=== PATIENT | female | born 1960 | race Caucasian/White ===

== ENCOUNTER 2020-01-29 10:17 | Outpatient (CLI) | payer OTHER, SELFPAY ==
--- NOTE | 2020-01-29 13:23 | DI.RAD_ITS ---
EXAM: XR KNEE RT 3V AP,LAT,CARLITOS CLINICAL HISTORY: RT KNEE PAIN TECHNIQUE: COMPARISON: No exams were available for comparison FINDINGS: Three views were obtained. There is a probable knee joint effusion. Cartilaginous joint spaces appe ar fairly well maintained as visualized. Minimal marginal osteophyte formation noted involving the j oints of the knee. No other significant finding. IMPRESSION: Suspected knee joint effusion, mild degenerative change.
== END 2020-01-29 10:37 ==
PROVIDERS: Visit Provider Orthopaedic Surgery
DX: M25.561 Pain in right knee (principal); M25.461 Effusion, right knee; M17.11 Unilateral primary osteoarthritis, right knee
CPT/HCPCS: 73562

== ENCOUNTER 2020-03-22 10:51 | Outpatient (CLI) | payer OTHER, SELFPAY ==
--- NOTE | 2020-03-22 09:00 | DI.RAD_ITS ---
EXAM: XR HEEL RT OS CALCIS CLINICAL HISTORY: right heel pain. TECHNIQUE: 2D digital imaging was performed. COMPARISON: No exams were available for comparison FINDINGS: There is a prominent plantar calcaneal spur. No bony erosions are seen. There is mild spurring at t he Achilles insertion on the calcaneus. IMPRESSION: Heel spurs. DATA REPOSITORY: RADIATION DOSE DELIVERED:
== END 2020-03-22 11:11 ==
PROVIDERS: Referring Provider Physician Assistant; Visit Provider Physician Assistant
DX: M77.31 Calcaneal spur, right foot
CPT/HCPCS: 73650

== ENCOUNTER 2020-03-30 08:53 | Outpatient (CLI) | payer OTHER, SELFPAY ==
[2020-03-31 21:58] LABS: SARS-CoV-2 RNA Undetected (Undetected)
== END 2020-03-30 09:13 ==
PROVIDERS: Visit Provider Nurse Practitioner Family
DX: Z11.59 Encounter for screening for other viral diseases (principal)
CPT/HCPCS: U0003

== ENCOUNTER 2020-09-10 18:07 | Outpatient (REF) | payer OTHER, SELFPAY | END 2020-09-10 18:27 | LOC: LBN 18:07 | PROVIDERS: Visit Provider Nurse Practitioner Family | DX: R32 Unspecified urinary incontinence (principal) | CPT/HCPCS: 87086 ==

== ENCOUNTER 2020-09-27 02:59 | Outpatient (CLI) | payer OTHER, SELFPAY ==
--- NOTE | 2020-09-27 15:57 | DI.MAMMO_ITS ---
EXAM: MG MAMMO SCREENING CLINICAL HISTORY: screening,Z12.39 TECHNIQUE: Bilateral full field digital CC and MLO mammographic images were obtained with 3D tomosyn thesis and utilizing computer aided detection (CAD). COMPARISON: Available for comparison. FINDINGS: Masses/Architectural Distortion: None seen. Microcalcifications: No suspicious pleomorphic-type are seen. Skin Thickening/Nipple Retraction: None. IMPRESSION: 1. No significant interval change with no specific features of malignancy noted. 2. Unless there is more urgent need, screening mammography is recommended, as per [employer] guidelines. BI-RADS Category 1 - Negative Breast Density - Category B - Scattered areas of fibroglandular density Breast density category C or D implies that the patient has dense breast tissue. Dense breast tissue is very common and is not abnormal but dense breast tissue can make it harder to find cancer on a ma mmogram. Also, dense breast tissue may increase their breast cancer risk. This information about the result of the mammogram report was provided to the patient to raise their awareness. Use this report when you speak with the patient about their risks for breast cancer, which includes their family hist ory. At that time, you may recommend for more screening tests (Ultrasound or MRI) as they might be us eful based on their risk. A negative radiographic report should not delay biopsy if a dominant or clinically suspicious mass is present. Up to ten percent of cancers are not identified on mammography. A negative report may reinforce clinical impression. Adenosis and dense breasts may obscure an underlying neoplasm. False positive reports average 6 to 10%. Patient will receive a letter notifying them of these results.
== END 2020-09-27 03:19 ==
PROVIDERS: Visit Provider Nurse Practitioner Family
DX: Z12.31 Encounter for screening mammogram for malignant neoplasm of breast (principal)
CPT/HCPCS: 77063; 77067

== ENCOUNTER 2021-01-12 02:54 | Outpatient (CLI) | payer OTHER, SELFPAY ==
[2021-01-12 08:50] LABS: Abs Immature Grans 0.01 10^3/uL (0.0-0.06); Absolute Basophil Count 0.03 10^3/uL (0.0-0.2); Absolute Eosinophil Count 0.26 10^3/uL (0.0-0.7); Absolute Lymphocyte Count 2.28 10^3/uL (1.2-3.4); Absolute Monocyte Count 0.38 10^3/uL (0.1-0.8); Absolute Neutrophil Count 3.19 10^3/uL (1.2-6.7); Basophils % 0.5; Eosinophils % 4.2; HCT 39.6 % (36.0-46.0); Immature Grans % 0.2; Lymphocytes % 37.1; MCH 26.6 pg (27.0-33.0); MCHC 32.8 % (32.0-36.0); MCV 81.1 fL (80-95); MPV 8.3 fL (8.0-11.0); Monocytes % 6.2; Neutrophils % 51.8; Nucleated RBC 0 %; Platelet Count 288 10^3/uL (130-400); RBC 4.88 10^6/uL (3.93-5.22); RDW 16.1 % (11.7-14.6); RDW-SD 47.3 fL; WBC 6.15 10^3/uL (4.4-10.8)
[2021-01-12 10:20] LABS: ALT 25 U/L (14-59); AST 14 U/L (15-37); Albumin 3.4 g/dL (3.4-5.0); Alkaline Phosphatase 89 U/L (46-116); Anion Gap 8.5 mmol/L (3-11); BUN 19 mg/dL (7-18); Bilirubin, Total 0.5 mg/dL (0.2-1.0); CO2 29.5 mmol/L (21.0-32.0); CREATININE 0.7 mg/dL (0.55-1.02); Calcium 8.6 mg/dL (8.5-10.1); Calculated LDL 79 mg/dL (<100); Chloride 105 mmol/L (98-107); Cholesterol 164 mg/dL (<200); Glucose 86 mg/dL (74-106); HDL Cholesterol 79 mg/dL (40-60); Potassium 4.4 mmol/L (3.5-5.1); Sodium 143 mmol/L (136-145); Total Protein 7.8 g/dL (6.4-8.2); Triglyceride 31 mg/dL (<150)
[2021-01-12 11:06] LABS: TSH < 0.01 uIU/mL (0.36-3.74)
[2021-01-13 04:33] LABS: Vitamin D 25 Total 55.6 ng/mL (30-100)
== END 2021-01-12 02:55 | disposition home or self-care (01) ==
LOC: LBO 02:54
PROVIDERS: Visit Provider Nurse Practitioner
DX: Z00.00 Encounter for general adult medical examination without abnormal findings (principal); E03.9 Hypothyroidism, unspecified; Z78.0 Asymptomatic menopausal state; Z80.0 Family history of malignant neoplasm of digestive organs
CPT/HCPCS: 36415; 80053; 80061; 82306; 84443; 85025

== ENCOUNTER 2021-01-26 14:01 | Outpatient (CLI) | payer OTHER, SELFPAY ==
--- NOTE | 2021-01-21 | DI.DEXA_ITS ---
Exam(s) XR DEXA BONE DENSITY W/WO ELVIRA EXAM: XR DEXA BONE DENSITY W/WO ELVIRA CLINICAL HISTORY: SCREENING FOR OSTEOPOROSIS, Z13.820 TECHNIQUE: COMPARISON: No exams were available for comparison FINDINGS: DEXA scan was performed according to the usual protocol. Findings for left hip scanning are T-score 0.3 with left femoral neck T-score -0.6. Findings for right forearm scanning are T-score 0.3. Findings for lumbar spine scanning are T-score -1.4. IMPRESSION: DEXA scan findings consistent with osteopenia according to the WHO criteria. The lateral vertebral s canogram shows no evidence of a vertebral compression fracture. RADIATION DOSE DELIVERED: Total DLP
== END 2021-01-26 14:21 ==
PROVIDERS: Visit Provider Nurse Practitioner
DX: M85.88 Other specified disorders of bone density and structure, other site (principal)
CPT/HCPCS: 77080

== ENCOUNTER 2021-05-29 19:26 | Emergency (ER) | payer OTHER, SELFPAY ==
[2021-05-29 19:32] VITALS: BP 164/67; PULSE 80; RESP 18; TEMP 36.6; O2SAT 98
--- NOTE | 2021-05-29 19:45 | DI.RAD_ITS ---
Exam(s) XR FOOT RT LIMITED EXAM: XR FOOT RT LIMITED CLINICAL HISTORY: ? foreign body, lateral mid foot. TECHNIQUE: 2D digital imaging was performed. COMPARISON: No exams were available for comparison FINDINGS: BONES: No acute fracture is present. No bony destructive lesion is seen. Heel spurs. JOINTS: No dislocation present. Mild degenerative changes. SOFT TISSUE: Normal. No foreign body. No gas collection. IMPRESSION: Heel spurs. No visible foreign body. DATA REPOSITORY: RADIATION DOSE DELIVERED:
--- NOTE | 2021-05-29 20:44 | DI.VRAD_ITS ---
PROCEDURE INFORMATION: Exam: XR Right Toe(s) Exam date and time: 05/29/2021 7:50 PM Age: 61 years old Clinical indication: Other: Foreign body, lateral mid foot TECHNIQUE: Imaging protocol: XR Right toes. Views: Minimum 2 views. COMPARISON: CR XR HEEL RT OS CALCIS 03/22/2020 9:30 AM FINDINGS: Bones/joints: No evidence for a fracture. Alignment is anatomic. The joint spaces are preserved. Stable calcaneal spurs. Soft tissues: Unremarkable. No evidence for a radiopaque foreign body. IMPRESSION: Unremarkable radiographic study. No evidence for radiopaque foreign body. Dictated and Authenticated by: Pako Reece MD. Ordering:BINH Joe MD
--- NOTE | 2021-05-29 20:53 | ED.GENADUL_ITS ---
Discharge Plan Disposition Patient Disposition: HOME Condition: Stable Discharge Details Clinical Impression: Foreign body Primary Care Provider: Rubina Quigley ED Provider: Tatyana Camargo Home Meds and New Rx's Prescriptions: New cephalexin 500 mg capsule 500 mg PO QID Qty: 20 RF: 0 Continued armour thryoid PO RF: 0 omega-3 fatty acids [Fish Oil Concentrate] 1,000 mg capsule 1,000 mg PO DAILY RF: 0 cholecalciferol (vitamin D3) 125 mcg (5,000 unit) capsule 125 mcg PO DAILY RF: 0 multivitamin Tablet 1 tab PO DAILY RF: 0 ascorbate calcium (vitamin C) 500 mg tablet 500 mg PO DAILY RF: 0 glucosamine-chondroitin [Osteo Bi-Flex] 250-200 mg tablet 2 tab PO BID RF: 0 Estring 2 mg (7.5 mcg /24 hour) ring 1 vag ring vaginal [id number] Qty: 1 RF: 2 Discharge Instructions Instructions: Soft Tissue Foreign Body (ED) Additional Instructions: warm soaks bid, rinse well and pat dry. can apply antibiotic ointment and bandaid to protect. can use over the counter pain medication as directed if needed. report sign of infection immediately. this includes but not limited to increase pain, redness or fever. crutches for ambulation as needed. call pcp tomorrow morning to check on tetanus status. Referrals: Rubina Quigley [Primary Care Provider] - (as needed) Discharge Data Discharge Date/Time-TO BE ENTERED AT DEPARTURE: 05/29/21 21:30 <Homero Sarabia DO - Last Filed: 05/30/21 04:27> I was requested by Tatyana Camargo to evaluate the patient's foot to remove potential foreign body. Small foreign body likely glass was noted on x-ray imaging. They evaluated the patient, discussed the procedure with the patient. Patient agreed and requested procedure. Under ultrasound guidance I was able to visualize foreign body, it was about 1 cm under the skin. Area was anesthetized with lidocaine with epinephrine, cleaned vigorously. Utilizing forceps I was able to directly visualize the foreign body under ultrasound guidance being grasped by the forcep however it appears on direct exam that the foreign body was actually in 3 pieces rather than 1. Is able to extract 2 small pieces, but the final 1 to 2 mm piece was both too small and too deep to be extracted. It appeared to be impossible to grab, it would slide away from the internal aspect of the forceps for every grasping attempt. After 5 subsequent attempt I was unable to remove the spinal piece. I discussed this with Tatyana Camargo. Recommend antibiotics and tetanus update and cleaning. HPI <Tatyana Camargo NP - Last Filed: 05/29/21 21:05> General Mode of arrival: ambulatory . Date/Time Provider Initiated Documentation: 05/29/21 19:45 . Limitations to Documentation: no limitations . Information obtained by: patient . HPI Narrative: stepped on something that caused pain but she was not able to find anything, she thinks it may have been glass. small puncture wound seen, no surrounding erythema, no sign of FB. states it hurts to bear weight on area. Related Data Home Medications Medication Instructions Recorded Confirmed armour thryoid PO 03/22/20 03/28/21 ascorbate calcium (vitamin C) 500 500 mg PO DAILY 03/22/20 05/29/21 mg tablet cholecalciferol (vitamin D3) 125 125 mcg PO DAILY 03/22/20 05/29/21 mcg (5,000 unit) capsule glucosamine-chondroitin 250 mg-200 2 tab PO BID tab 03/22/20 05/29/21 mg tablet multivitamin 1 tab PO DAILY 03/22/20 05/29/21 omega-3 fatty acids 1,000 mg 1,000 mg PO DAILY 03/22/20 05/29/21 capsule estradiol 1 vag ring VAGINAL [id number] #1 ea 11/30/20 05/29/21 cephalexin 500 mg PO QID #20 cap 05/29/21 Previous Rx's Medication Instructions Recorded estradiol 1 vag ring VAGINAL [id number] #1 ea 11/30/20 cephalexin 500 mg PO QID #20 cap 05/29/21 Allergies Allergy/AdvReac Type Severity Reaction Status Date / Time ibuprofen [From Advil] Allergy Verified 03/28/21 15:13 General Stated Complaint: Laceration NORMA: 4 PFSH <Tatyana Camargo NP - Last Filed: 05/29/21 21:05> Medical History Asymmetrical sensorineural hearing loss Cervical polyp Hypothyroidism Right Achilles tendinitis Family History Father Non Hodgkin's lymphoma Mother Diabetes Pancreatic cancer Has tested BRCA Negative Thyroid disorder Hypertension Brother Hypertension Sister Hypertension Social History Smoking/Tobacco Use Status: Never Second Hand Exposure: No Smoking risk assessment performed?: Yes Alcohol Intake: current Alcohol Intake frequency: holidays/special occasions only Drug use: Never Substance use type: does not use Current gender identity: female Course <Tatyana Camargo NP - Last Filed: 05/29/21 21:05> Vital Signs Vital signs: Vital Signs Temperature 36.6 C 05/29/21 19:32 Pulse 80 05/29/21 19:32 Respiratory Rate 18 05/29/21 19:32 Blood Pressure 164/67 H 05/29/21 19:32 Pulse Oximetry 98 05/29/21 19:32 Temperature 36.6 C 05/29/21 19:32 Temperature Source Temporal Artery Scan 05/29/21 19:32 Pulse 80 05/29/21 19:32 Respiratory Rate 18 05/29/21 19:32 Blood Pressure 164/67 H 05/29/21 19:32 Blood Pressure Position Supine 05/29/21 19:32 Pulse Oximetry 98 05/29/21 19:32 Oxygen Delivery Method Room Air 05/29/21 19:32 Oxygen Flow Rate 0 05/29/21 19:32 <Homero Sarabia DO - Last Filed: 05/30/21 04:27> Foreign Body Removal Time Out Performed: yes Site: right and foot Description of foreign body: other (glass) Sedation/Analgesia: none Technique: removal with forceps Confirmed by:: direct visualization and ultrasound Complications: none Post-procedure exam: awake, alert, normal BP and normal HR Neurovascular: normal distal pulse, normal capillary fill and distal motor function normal
== END 2021-05-29 21:30 | disposition home or self-care (01) ==
PROVIDERS: Emergency Provider Nurse Practitioner Acute Care; PCP Nurse Practitioner
DX: S90.851A Superficial foreign body, right foot, initial encounter (principal); W45.8XXA Other foreign body or object entering through skin, initial encounter; W25.XXXA Contact with sharp glass, initial encounter
CPT/HCPCS: 99283; 73620

== ENCOUNTER 2021-07-19 04:28 | Outpatient (CLI) | payer OTHER, SELFPAY ==
[2021-07-19 17:00] LABS: TSH 0.01 uIU/mL (0.36-3.74)
[2021-07-21 02:02] LABS: Vitamin D 25 Total 59.9 ng/mL (30-100)
== END 2021-07-19 04:29 | disposition home or self-care (01) ==
PROVIDERS: PCP Nurse Practitioner; Visit Provider Nurse Practitioner
DX: E03.9 Hypothyroidism, unspecified (principal); R89.9 Unspecified abnormal finding in specimens from other organs, systems and tissues; E55.9 Vitamin D deficiency, unspecified
CPT/HCPCS: 36415; 82306; 84443

== ENCOUNTER 2021-10-03 03:42 | Outpatient (CLI) | payer OTHER, SELFPAY ==
[2021-10-03 13:05] LABS: TSH (W/Ref FT4) 0.09 uIU/mL (0.36-3.74)
[2021-10-03 13:21] LABS: FREE T4 0.69 ng/dL (0.76-1.46)
== END 2021-10-03 03:43 | disposition home or self-care (01) ==
PROVIDERS: PCP Nurse Practitioner; Visit Provider Nurse Practitioner
DX: E03.9 Hypothyroidism, unspecified (principal)
CPT/HCPCS: 36415; 84439; 84443

== ENCOUNTER 2022-01-04 01:51 | Outpatient (CLI) | payer OTHER, SELFPAY ==
[2022-01-04 22:17] LABS: T3, Total 233 ng/dL (97-169)
[2022-01-04 22:52] LABS: Thyroglobulin Antibody <15 U/mL (<=60); Thyroperoxidase Antibody <28 U/mL (<=60)
== END 2022-01-04 01:52 | disposition home or self-care (01) ==
LOC: LBO 01:51
PROVIDERS: PCP Nurse Practitioner; Visit Provider Internal Medicine Endocrinology, Diabetes & Metabolism
DX: E03.9 Hypothyroidism, unspecified (principal)
CPT/HCPCS: 36415; 84480; 86376; 86800

== ENCOUNTER 2022-01-19 09:15 | Outpatient (CLI) | payer OTHER, SELFPAY ==
[2022-01-19 12:39] LABS: Vitamin D 25 Total 57.1 ng/mL (30-100)
== END 2022-01-19 09:16 | disposition home or self-care (01) ==
LOC: LBO 09:16
PROVIDERS: PCP Nurse Practitioner; Visit Provider Nurse Practitioner
DX: E55.9 Vitamin D deficiency, unspecified (principal)
CPT/HCPCS: 36415; 82306

== ENCOUNTER 2022-03-20 16:35 | Outpatient (REF) | payer OTHER, SELFPAY ==
--- NOTE | 2022-03-20 15:30 | PAPFT_PTH ---
PATIENT: Mary James LOC: [facility] U#:[id number] AGE/SX: 61/F ROOM: RE03/20/[address]: PEG Du : 1960 BED: DIS: 03/20/2022 SPEC #: [id number] RECD: 03/20/22 18:14 STATUS: DEBBIE REQ #: [id number] CONRAD: 03/20/22 15:[address]: Jennifer May DEPT: [facility] Cytology RECD BY: Nenita Ghotra ENTERED: 03/20/22 18:14 SP TYPE: PAPFT OTHR DR: Rubina Quigley Tissues: 1 - CX/ENDOCX FOR PAP SMEARS Procedures: PAP THIN PREP/UVM Screening HPV DNA PROBE Comments: [id number]
== END 2022-03-20 16:36 | disposition home or self-care (01) ==
LOC: LBN 16:35
PROVIDERS: PCP Nurse Practitioner; Visit Provider Nurse Practitioner Family
DX: Z12.4 Encounter for screening for malignant neoplasm of cervix (principal); Z11.51 Encounter for screening for human papillomavirus (HPV)
CPT/HCPCS: 88142; 87624

== ENCOUNTER 2022-05-17 03:33 | Outpatient (CLI) | payer OTHER, SELFPAY ==
[2022-05-18 10:29] LABS: Lyme Ab w Rflx to Lyme Confirm Negative (Negative)
== END 2022-05-17 03:34 | disposition home or self-care (01) ==
LOC: LBO 03:33
PROVIDERS: PCP Nurse Practitioner; Visit Provider Nurse Practitioner
DX: M25.50 Pain in unspecified joint (principal)
CPT/HCPCS: 36415; 86618

== ENCOUNTER → 2022-06-02 13:54 | Outpatient (CLI) | payer OTHER, SELFPAY ==
--- NOTE | 2022-06-02 09:30 | DI.MAMMO_ITS ---
Exam(s) MAMMO SCREENING EXAM: MAMMO SCREENING CLINICAL HISTORY: screening, Z12.39 TECHNIQUE: Mammograms were interpreted according to the usual protocol including computer analysis w [email or web address] CAD system, tomosynthesis and C-view imaging. COMPARISON: 2010 through 2020 FINDINGS: The breasts are composed of scattered fibroglandular densities, Breast Density category B. No suspicious masses or suspicious microcalcifications are seen. No skin thickening or abnormal axillary lymph nodes are seen. There has been no significant change from prior exams. IMPRESSION: BI-RADS Category 1, Negative mammogram Yearly screening mammography is recommended. Breast Density - Category B, scattered fibroglandular densities. A negative radiographic report should not delay biopsy if a dominant or clinically suspicious mass is present. Up to ten percent of cancers are not identified on mammography. A negative report may reinforce clinical impression. Adenosis and dense breasts may obscure an underlying neoplasm. False positive reports average 6 to 10%. Patient will receive a letter notifying them of these results.
== END ==
PROVIDERS: PCP Nurse Practitioner; Visit Provider Nurse Practitioner Family
DX: Z12.31 Encounter for screening mammogram for malignant neoplasm of breast (principal)
CPT/HCPCS: 77063; 77067

== ENCOUNTER 2022-06-16 02:06 | Outpatient (CLI) | payer OTHER, SELFPAY ==
[2022-06-16 14:36] LABS: FREE T4 0.83 ng/dL (0.76-1.46); TSH 0.29 uIU/mL (0.36-3.74)
[2022-06-16 22:21] LABS: T3, Total 184 ng/dL (97-169)
[2022-06-19 12:09] LABS: Thyroperoxidase Antibody <28 U/mL (<=60)
== END 2022-06-16 02:07 | disposition home or self-care (01) ==
LOC: LBO 02:07
PROVIDERS: PCP Nurse Practitioner; Visit Provider Internal Medicine Endocrinology, Diabetes & Metabolism
DX: E03.9 Hypothyroidism, unspecified (principal)
CPT/HCPCS: 36415; 84439; 84443; 84480; 86376

== ENCOUNTER 2022-09-18 09:01 | Outpatient (CLI) | payer OTHER, SELFPAY ==
--- NOTE | 2022-09-18 11:32 | DI.RAD_ITS ---
Exam(s) XR FOOT RT COMPLETE EXAM: XR FOOT RT COMPLETE CLINICAL HISTORY: ACHILLES TENDONITIS. TECHNIQUE: 2D digital imaging was performed. Three views. COMPARISON: CR,XR XR FOOT RT LIMITED from 05/29/2021 FINDINGS: BONES: No acute fracture is present. No bony destructive lesion is seen. Plantar calcaneal spur. Mi ld degenerative changes intertarsal region and 1st MTP joint JOINTS: No dislocation present. SOFT TISSUE: Calcification at distal Achilles tendon and spurring at the insertion. IMPRESSION: Heel spurs. DATA REPOSITORY: RADIATION DOSE DELIVERED:
== END 2022-09-18 09:21 ==
LOC: DI 09:02
PROVIDERS: PCP Nurse Practitioner; Visit Provider Podiatrist
DX: M77.31 Calcaneal spur, right foot (principal)
CPT/HCPCS: 73630

== ENCOUNTER 2022-09-28 03:26 | Outpatient (CLI) | payer OTHER, SELFPAY ==
[2022-09-28 12:38] LABS: FREE T4 0.72 ng/dL (0.76-1.46); TSH 0.32 uIU/mL (0.36-3.74)
== END 2022-09-28 03:27 | disposition home or self-care (01) ==
LOC: LBO 03:26
PROVIDERS: PCP Nurse Practitioner; Visit Provider Internal Medicine Endocrinology, Diabetes & Metabolism
DX: E03.9 Hypothyroidism, unspecified (principal)
CPT/HCPCS: 36415; 84439; 84443

== ENCOUNTER 2022-10-03 11:26 | Outpatient (CLI) | payer OTHER, SELFPAY ==
--- NOTE | 2022-10-03 12:15 | DI.MRI_ITS ---
Exam(s) MR LOWER JOINT RT WO EXAM: MR LOWER JOINT RT WO CLINICAL HISTORY: CALCANEAL SPUR RT FOOT, ACHILLES TENDINITIS RT LEG TECHNIQUE: Multiplanar multisequence MRI was performed without intravenous contrast. COMPARISON: CR XR FOOT RT COMPLETE from 09/18/2022 FINDINGS: SKIN: No evidence of ulcer nor subcutaneous tract. 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 There is a pump bump b carlos enlargement on the posterior superior aspect of the calcaneus with retrocalcaneal bursitis and in sertional thickening distal Achilles tendon. There is also a moderate-prominent inferior calcaneal s pur noted. Plantar fascia thickness is upper normal but without abnormal signal to suggest plantar f asciitis. Also no plantar fascia nodularity evident. No ankle joint effusion seen and no effusion in the subtalar joint nor ower in talonavicular and pham caneocuboid joints.. The talar dome appears unremarkable. The ankle mortise is maintained. There i s no evidence of para-articular ganglion.There is no evidence of osseous tarsal coalition. More distally there is some degenerative change in the 2nd and 3rd tarsometatarsal joints. LIGAMENTS: Anterior and posterior tibiofibular syndesmotic ligaments are intact. Anterior and joinery setter out ior talofibular ligaments are intact. The calcaneofibular ligament is intact. On the medial aspect of the ankle deltoid ligament appears intact. SINUS TARSI: There is no loss of the normal fat signal in this space. Interosseous ligament is intac t. There is no evidence of sinus tarsi ganglion cyst. ANTEROLATERAL GUTTER:There is no abnormal signal/abnormal tissue in this space. MUSCULOTENDINOUS STRUCTURES: Achilles tendon: Insertional thickening-mild tendinitis. No high-grade tear. Plantar fascia: Unremarkable. No evidence of tear, abnormal thickening, nor abnormal nodularity. Anterior Extensor tendons: Unremarkable. Medial Tendons: Posterior Tibialis: Unremarkable. No tear or tenosynovitis evident. Flexor Digitorum longus: Unremarkable. No tear or tenosynovitis evident. Flexor Hallicus longus: Unremarkable. No tear or tenosynovitis evident. Lateral Tendons: Peroneus longus: Unremarkable. No tear nor tenosynovitis evident. Peroneus brevis:Unremarkable. No tear nor tenosynovitis evident. SOFT TISSUES: Unremarkable. OTHER FINDINGS: Lisfranc ligament is intact. IMPRESSION: 1. Main findings here appear to be components of Raymundo synrome which is comprised of a Raymundo defo rmity also known as pump bump or Camacho bump on the posterior superior aspect of the calcaneus, and th is finding is associated with retrocalcaneal bursitis, as is evident here. There is also insertional thickening of the Achilles tendon with mild tendinitis but no true tear of the Achilles. 2. There is also prominent inferior calcaneal spur but this is not associated with abnormal intraosse ous signal at this level nor evidence of obvious plantar fasciitis. 3. There is signal abnormality in the bases of the 2nd and 3rd metatarsals as well as distal aspects of the corresponding cuneiform bones consistent with some degenerative change at these tarsometatarsa l articulations. There is sparing of the 1st, 4th, and 5th tarsometatarsal joints. DATA REPOSITORY:
== END 2022-10-03 11:46 ==
LOC: DI 11:27
PROVIDERS: PCP Nurse Practitioner; Visit Provider Podiatrist
DX: M77.31 Calcaneal spur, right foot (principal); M76.61 Achilles tendinitis, right leg; M77.51 Other enthesopathy of right foot and ankle
CPT/HCPCS: 73721

== ENCOUNTER 2022-12-26 05:03 | Outpatient (CLI) | payer OTHER, SELFPAY ==
[2022-12-26 13:22] LABS: FREE T4 0.67 ng/dL (0.76-1.46)
[2022-12-26 15:14] LABS: TSH 1.77 uIU/mL (0.36-3.74)
[2022-12-27 18:18] LABS: T3, Total 134 ng/dL (97-169)
== END 2022-12-26 05:04 | disposition home or self-care (01) ==
LOC: LBO 05:03
PROVIDERS: PCP Nurse Practitioner; Visit Provider Internal Medicine Endocrinology, Diabetes & Metabolism
DX: E03.9 Hypothyroidism, unspecified (principal)
CPT/HCPCS: 36415; 84439; 84443; 84480

== ENCOUNTER 2023-01-26 02:46 | Outpatient (CLI) | payer OTHER, SELFPAY ==
[2023-01-26 12:50] LABS: FREE T4 0.82 ng/dL (0.76-1.46); TSH 0.42 uIU/mL (0.36-3.74)
[2023-01-26 22:27] LABS: T3, Total 177 ng/dL (97-169)
== END 2023-01-26 02:47 | disposition home or self-care (01) ==
LOC: LBO 02:46
PROVIDERS: PCP Nurse Practitioner; Visit Provider Internal Medicine Endocrinology, Diabetes & Metabolism
DX: E03.9 Hypothyroidism, unspecified (principal)
CPT/HCPCS: 36415; 84439; 84443; 84480

== ENCOUNTER 2023-06-11 12:52 | Outpatient (CLI) | payer OTHER, SELFPAY ==
--- NOTE | 2023-06-11 09:15 | DI.RAD_ITS ---
Exam(s) XR HAND LT COMPLETE EXAM: XR HAND LT COMPLETE CLINICAL HISTORY: left hand discomfort. TECHNIQUE: 2D digital imaging was performed of the left hand. Three views were obtained. AP, later al and oblique views were obtained. COMPARISON: No exams were available for comparison FINDINGS: BONES: No acute fracture is present. No bony destructive lesion is seen. There is a benign-appearing cyst in the middle phalanx of the 4th finger. JOINTS: No dislocation present. There are mild degenerative changes seen in the hand and wrist charac terized by joint space narrowing and osteophytes. The findings are most marked at the DIP joints of the fingers. SOFT TISSUE: Normal. IMPRESSION: Mild degenerative changes of the left hand. DATA REPOSITORY: RADIATION DOSE DELIVERED:
== END 2023-06-11 12:53 | disposition home or self-care (01) ==
LOC: DIORS 12:53
PROVIDERS: PCP Nurse Practitioner; Visit Provider Physician Assistant
DX: M65.4 Radial styloid tenosynovitis [de Quervain] (principal); M67.441 Ganglion, right hand; M19.042 Primary osteoarthritis, left hand
CPT/HCPCS: 73130

== ENCOUNTER 2023-08-22 07:59 | Day surgery (SDC) | payer OTHER, SELFPAY ==
[2023-08-22 08:34] VITALS: BP 139/92; PULSE 74; RESP 18; TEMP 36.6; O2SAT 99
[2023-08-22] MEDS: Lactated Ringers 1,000 ML 80 ML IV (08:57)
--- NOTE | 2023-08-22 09:02 | W.ANESPRE ---
General Info Date of Service Date Performed: 08/22/23 Height: 5 ft 2 in Weight: 110.9 kg Body Mass Index (BMI): 44.7 Surgical Procedure: Operation Date: 08/22/23 10:55 Proposed Procedure Side Surgeon p Wrist ECTR & Dequervains Release Left George Lentz MD Meds Allergies and Home Medications Allergies Allergy/AdvReac Type Severity Reaction Status Date / Time ibuprofen [From Advil] Allergy Verified 08/22/23 08:24 Home Medication Medication Instructions Recorded armour thryoid 90 mg PO DAILY AM 03/22/20 cholecalciferol (vitamin D3) 125 125 mcg PO DAILY 03/22/20 mcg (5,000 unit) capsule glucosamine-chondroitin 250 mg-200 2 tab PO BID 03/22/20 mg tablet (Osteo Bi-Flex) multivitamin 1 tab PO DAILY 03/22/20 omega-3 fatty acids 1,000 mg 1,000 mg PO DAILY 03/22/20 capsule (Fish Oil Concentrate) oxybutynin chloride 5 mg 5 mg PO DAILY #90 tabs 09/13/22 tablet,extended release 24 hr estradiol 2 mg (7.5 mcg/24 hour) 1 vag ring vaginal [id number] #1 ea 07/24/23 vaginal ring (Estring) Current Visit Medications: Current Medications Generic Name Dose Route Start Last Admin Trade Name Freq PRN Reason Stop Dose Admin Acetaminophen 650 mg 08/22/23 07:33 Acetaminophen 325 Mg Tab PO 09/21/23 07:32 Q4H PRN PRN Hydrocodone Bitart/Acetaminophen 0 tab 08/22/23 07:32 Hydrocodone 5/Acetaminophen 325 Tab PO 09/21/23 07:31 Q3H PRN PRN Pain Ringer's Solution 1,000 mls @ 80 mls/hr 08/22/23 06:00 08/22/23 08:57 IV 09/20/23 23:59 80 mls/hr INFUSION DOLLY Administration Cefazolin Sodium/Dextrose 2 gm in 50 mls @ 100 mls/hr 08/22/23 06:00 Ancef Duplex IVPB 08/22/23 16:00 PREOP DOLLY IV Miscellaneous Supplies 1 each 08/22/23 06:00 Iv Access IV 09/20/23 23:59 DIRECTED DOLLY Sodium Chloride 0 ml 08/22/23 06:00 Normal Saline Flush 10 Ml Syr IV 09/20/23 23:59 PRN PRN Sodium Chloride 0 ml 08/22/23 06:00 Normal Saline 10 Ml Vial IJ 09/20/23 23:59 DIRECTED PRN Sterile Water 0 ml 08/22/23 06:00 Water,Injection,Sterile 10 Ml Vial IJ 09/20/23 23:59 DIRECTED PRN PFSH Active Problems Active Problems: Problem Status Onset Code Bilateral carpal tunnel syndrome G56.03 De Quervain's tenosynovitis, left M65.4 Urge incontinence N39.41 Foreign body Tinnitus, bilateral H93.13 Asymmetrical sensorineural hearing loss H90.3 Hypothyroidism E03.9 Internal derangement of right knee M23.91 Encounter for screening for other viral diseases Z11.59 Right Achilles tendinitis M76.61 Medical History Medical History Cervical polyp Surgical History Surgical History History of D&C History of colonoscopy Tobacco Smoking/Tobacco Use Status: Never Second hand exposure: No Alcohol Alcohol Intake: current Alcohol intake frequency: holidays/special occasions only Alcohol type: beer, wine and hard liquor Substance Use Substance use: Never Substance use type: does not use Vital Signs and Lab Results Vital Signs Most Recent Vital Signs in EMR: Most Recent Vital Signs Temp Pulse Resp BP Pulse Ox 36.6 C 74 18 139/92 H 99 08/22/23 08:34 08/22/23 08:34 08/22/23 08:34 08/22/23 08:34 08/22/23 08:34 Lab Results Blood Type / Crossmatch: No Data to Display Complete Blood Count: No Data to Display Complete Metabolic Panel: No Data to Display Liver Function Panel: No Data to Display Coagulation Panel: No Data to Display Cardiac Panel: No Data to Display Arterial Blood Gas: No Data to Display Venous Blood Gas: No Data to Display Pancreas Panel: No Data to Display Thyroid Panel: No Data to Display Infectious Disease: No Data to Display Blood Cultures: No Data to Display Toxicology Panel: No Data to Display Anesthesia Assessment and Plan Anesthesia History Personal History: No History of Anesthesia Complications Family History: No Family History of Anesthesia Complications Exercise Tolerance Exercise Tolerance: Metabolic Equivalents>4 Pertinent Negatives Pertinent Negatives: No Symptoms of GERD, No Major Cardiovascular Symptoms or Complaints and No Major Pulmonary Symptoms or Complaints Cardiac & Pulmonary Exam Cardiac Exam: Normal S1/S2 Heart Sounds Pulmonary Exam: Clear Bilateral Breath Sounds Implantable Cardiac Device Does patient have a Pacemaker or an ICD?: No Airway Exam Known Difficult Airway: No Mallampati Class: 2 Mouth Opening: Normal (> 3cm) Thyromental Distance: Greater than 3 cm Neck Range of Motion: Full ROM Neck Circumference: Normal Teeth Condition: Normal Dentition ASA Classification ASA Score: ASA 3 Emergency Case?: No NPO Status NPO Status: NPO Clears >2 hours, Solids >8 hours Anesthesia Plan Resuscitation Status: Full Code Anesthesia Technique: General Anesthesia Airway Planned: Natural Airway Monitors Used: Standard Monitors
[2023-08-22 09:05] VITALS: BMI 44.7
--- NOTE | 2023-08-22 09:05 | W.PREOPHP ---
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 She also has some mild symptoms of cubital tunnel syndrome although less symptomatic. Please see the previous office note for complete detailed history but she is here today for carpal tunnel release and de Quervain's, first extensor compartment, release. I reviewed the surgery with her in detail. I discussed the risk to include bleeding, infection, pain, stiffness, damage to nerves and vessels, damage to muscle and tendons, recurrence, incomplete release or missed subcompartment, weakness, inflammatory changes around the nerve or tendon, need for repeat procedures. Despite these risk, she elects to proceed. History of Present Illness History of Present Illness Chief Complaint: Left Carpal tunnel syndrome and Left DeQuervain's Tenosynovitis Narrative: Mary is a 63-year-old female have seen previously for bilateral hand pain focused on the left side with de Quervain's tenosynovitis and carpal tunnel syndrome. Please see the previous office note for complete detailed history and clinical summary. She is here today for left carpal tunnel release as well as de Quervain's release. She denies any recent illness. She denies any chest pain or shortness of breath. Review of Systems All systems reviewed & are unremarkable except as noted in HPI and below PFSH All Active Problems Bilateral carpal tunnel syndrome (Acute) De Quervain's tenosynovitis, left (Acute) 40 mg Depo-Medrol injection: 11/09/22 Urge incontinence (Acute) Foreign body (Acute) Tinnitus, bilateral (Acute) Asymmetrical sensorineural hearing loss (Acute) Hypothyroidism (Chronic) Internal derangement of right knee (Acute) Encounter for screening for other viral diseases (Acute) Right Achilles tendinitis (Acute) Medical History Cervical polyp Surgical History History of D&C History of colonoscopy Family History Father Non Hodgkin's lymphoma Mother Diabetes Pancreatic cancer Has tested BRCA Negative Thyroid disorder Hypertension Brother Hypertension Sister Hypertension Social History Smoking/Tobacco Use Status: Never Second Hand Exposure: No Smoking risk assessment performed?: Yes Alcohol Intake: current Alcohol Intake frequency: holidays/special occasions only Alcohol type: beer, wine and hard liquor Drug use: Never Substance use type: does not use Housing: house Current gender identity: female Do you feel safe at home: Yes Do you feel safe in your relationship?: Yes Meds Allergies and Home Medications Allergies Allergy/AdvReac Type Severity Reaction Status Date / Time ibuprofen [From Advil] Allergy Verified 08/22/23 08:24 Home Medications Medication Instructions Recorded Confirmed Type armour thryoid 90 mg PO DAILY AM 03/22/20 08/22/23 History cholecalciferol (vitamin D3) 125 125 mcg PO DAILY 03/22/20 08/22/23 History mcg (5,000 unit) capsule glucosamine-chondroitin 250 mg-200 2 tab PO BID 03/22/20 08/22/23 History mg tablet (Osteo Bi-Flex) multivitamin 1 tab PO DAILY 03/22/20 08/22/23 History omega-3 fatty acids 1,000 mg 1,000 mg PO DAILY 03/22/20 08/22/23 History capsule (Fish Oil Concentrate) oxybutynin chloride 5 mg 5 mg PO DAILY #90 tabs 09/13/22 08/22/23 Rx tablet,extended release 24 hr estradiol 2 mg (7.5 mcg/24 hour) 1 vag ring vaginal [id number] #1 ea 07/24/23 08/22/23 Rx vaginal ring (Estring) Exam Const General: cooperative, healthy appearing, comfortable and no acute distress Resp Auscultation: clear to auscultation bilaterally Cardio Rate: regular rate Rhythm: regular rhythm Results Last Vital Signs Temp 36.6 C 08/22/23 08:34 Pulse 74 08/22/23 08:34 Resp 18 08/22/23 08:34 BP 139/92 H 08/22/23 08:34 Pulse Ox 99 08/22/23 08:34
[2023-08-22] MEDS: ceFAZolin 2 GM/50 ML BAG IVPB (10:18)
--- NOTE | 2023-08-22 10:27 | PDOC.DSDIS_ITS ---
Date of service: 08/22/23 Time of Service: 10:32 Discharge Plan Disposition Patient Disposition: Home Condition: Good Discharge Details Reason For Visit: Left carpal tunnel and DeQuervain's tenosynovitis Attending Provider: George Lentz Primary Care Provider: Rubina Quigley Home Meds and New Rx's Prescriptions: New hydrocodone-acetaminophen 5-325 mg tablet 1 tab PO Q6H PRN (Reason: severe pain) Qty: 4 0RF Rx Instructions: Take one tablet up to every 6 hours as needed for severe postoperative pain acetaminophen 500 mg tablet 1,000 mg PO Q8H PRN Qty: 90 0RF Rx Instructions: Take two tablets up to every 8 hours as needed for pain Continued armour thryoid 90 mg PO DAILY AM Patient Comments: 60mg in am and 30mg in pm Rx Instructions: 30 mg PO daily pm omega-3 fatty acids [Fish Oil Concentrate] 1,000 mg capsule 1,000 mg PO DAILY cholecalciferol (vitamin D3) 125 mcg (5,000 unit) capsule 125 mcg PO DAILY multivitamin Tablet 1 tab PO DAILY glucosamine-chondroitin [Osteo Bi-Flex] 250-200 mg tablet 2 tab PO BID Rx Instructions: give after food/meal Estring 2 mg (7.5 mcg /24 hour) ring 1 vag ring vaginal [id number] Qty: 1 3RF oxybutynin chloride 5 mg tablet extended release 24hr 5 mg PO DAILY Qty: 90 3RF Discharge Instructions Additional Instructions: Dequervain's Discharge Instructions Activity: You should keep the hand elevated as much as possible for the first few days. You may use the other fingers as tolerated but avoid trying to do too much too soon. You may perform light activities with the splint in place. Dressing/Cast: Your splint should stay in place at all times. Do NOT get it wet. You may loosen the JON wrap if you feel it is too tight and then rewrap more loosely. Medications: - You should take Tylenol and Ibuprofen for baseline pain control. - You have Hydrocodone for breakthrough pain. - You may apply ice over the thumb. Follow-up: 7-10 days Stand Alone Forms: Tor Sharpe Tunnel Release Referrals: George Lentz MD [ [facility] STAFF PHYSICIAN] - Equipment/Supplies: Splint Activity:: Elevate Remove Dressings/Wound Care:: Do Not Remove Shower/Bathe:: Cover Diet:: As Tolerated Discharge Orders Discharge Orders: Discharge Order (Routine); Ordered 08/22/23 Ordered By: Tiffanie Pederson DS: Diagnosis Discharge Diagnosis (1) De Quervain's tenosynovitis, left: Status: Acute (2) Left carpal tunnel syndrome: Status: Suspected
[2023-08-22] MEDS: Lidocaine 1% Multi-Dose W/EPI 1/100,000 50 ML VIAL (10:29)
--- NOTE | 2023-08-22 10:43 | ROE_ITS ---
Date of service: 08/22/23 Time of Service: 10:20 Operative Note Operative Note DATE OF PROCEDURE: 08/22/23 PRE-OP DIAGNOSIS: Left Carpal Tunnel Syndrome Left DeQuervain's Tenosynovitis POST-OP DIAGNOSIS: same PROCEDURE: Left Endoscopic Carpal Tunnel Release Left 1st Extensor Compartment (DeQuervain's) Release SURGEON: George Lentz ANESTHESIA TYPE: General:No Airway Refer to Anesthesia Record ESTIMATED BLOOD LOSS: 0 PATHOLOGY: none sent TOURNIQUET TIME: 13 COMPLICATIONS: None Patient was transported to: same day Patient's condition: stable Indications: I have seen Mary in clinic for symptoms of carpal tunnel syndrome as well as DeQuervain's Tenosynovitis. The numbness, tingling, and pain limited function. Clinical exam findings with nerve conduction tests confirmed the diagnosis of carpal tunnel syndrome. Nonoperative measures such as bracing, time, activity modifications had been tried but disability and pain persisted. I discussed carpal tunnel and first extensor compartment release with the patient. I reviewed the risks of the procedure to include, but not limited to, bleeding, infection, pain, stiffness, incomplete release, damage to nerves or vessels, persistent numbness, recurrence. Despite these risks, the patient elected to proceed. Findings: There was tightened carpal tunnel. This was dilated and released successfully with the endoscopic with increased space within the tunnel. The antebrachial fascia was released proximally freeing the median nerve at the wrist. The first extensor compartment was identified and and released. EPB and APL were checked independently to not have any subcompartments. Procedure Description: Mary was greeted in the preoperative holding area where the correct side was identified and marked. The consent was reviewed with the patient and signed. The history and physical was updated. All questions were answered. She was taken back to the operating room. The patient was placed into the supine position on the operating room table with the left arm on an arm board. A nonsterile tourniquet was placed high onto the arm. All bony prominences were well padded. Prophylactic antibiotics in the form of Cefazolin were administered. The left arm was then prepped with Chloraprep and draped in a standard fashion with stockinette and extremity drape. A timeout to confirm correct identity, side and site, procedure, allergies, anesthesia, and medical concerns was performed. The surgical site was marked in the volar wrist creases in line with the radial border of the fourth ray. Additionally, the planned incision for the first extensor compartment release was also drawn on the skin. These areas were anesthetized with 1% Lidocaine with epinephrine, buffered with sodium bicarb and. The limb was then exsanguinated with an Esmarch. The skin was incised with a 15 blade, approximately 1cm. The skin only was cut and the deeper tissue was dissected bluntly with a tenotomy scissor, avoiding passing nerve and venous structures. The fascia was penetrated and opened bluntly. A two-prong skin hook was placed under this proximal fascial edge. A series of hamate finders were used to identify and dilate the carpal tunnel. Synovial elevator was used to free synovial attachments to the underside of the transverse carpal ligament. My thumb was kept in the palm to alexa the distal extent of the carpal tunnel and correctly position the hand. The Microaire endoscope was inserted without difficulty and without resistance. Excellent visualization showed horizontally running fibers of the transverse carpal ligament (TCL). The distal extent of the TCL was visualized and the end of the scope palpated with the thumb. The blade was elevated and withdrawn from distal to proximal. The TCL was split into two flaps. The endoscope was reinserted to confirm complete release and any remnant ligament was incised. The scope was withdrawn and the proximal aspect of the carpal tunnel was grossly inspected and appeared release with the median nerve visible. The antebrachial fascia at the level of the wrist was then freed from the overlying skin and then the underlying median nerve with blunt dissection. This was transected longitudinally for about 3cm proximal to the wrist incision. The wound was then irrigated with easy flow of irrigant distally and proximally. The incision was closed with a single 4-0 Nylon suture. Attention was then turned to the first sensor compartment release. A 2 cm incision was made longitudinally over the radial styloid. The skin was incised only. The deep tissue subcutaneous fat was dissected with a tenotomy scissors trying to protect any branches of the superficial radial nerve. Any branches that were identified were retracted out of the way. The first compartment ext ensor tendons were then identified. The distal aspect of the first compartment was noted and were released. This release was performed more on the dorsal side to prevent tendon subluxation. The entirety of the first extensor compartment was then released. The slips of the abductor pollicis longus tendon were inspected. They removed to confirm the appropriate motion of the thumb. The extensor pollicis brevis tendon was then identified. It was fully released without notable subcompartment. Traction on the tendon was also used to confirm appropriate extension of the thumb confirming the release of the appropriate tendon. The dorsal radial surface of the radius was once again inspected to make sure there is no other sub-compartments or other restrictions to tendon motion. The wound was then thoroughly irrigated. The deep tissue was closed with a 3-0 Vicryl. The skin was closed with a running subjective 4-0 Monocryl. The tourniquet is released without significant bleeding. Xeroform was placed on both wounds. The hand was dressed with 4 x 4's, Kerlex and JON wrap into a soft thumb spica splint. All counts were correct. Patient was transferred back to same day surgery area in stable condition. The patient tolerated the procedure well and was returned to the Same Day Surgery area in a stable condition suffering no known complication.
[2023-08-22 10:45] VITALS: BP 107/51; PULSE 71; RESP 16; TEMP 36.5; O2SAT 93
--- NOTE | 2023-08-22 10:47 | W.ANESPOSTOP ---
Postoperative Evaluation Date, Time and Location Date Performed: 08/22/23 Time Performed: 10:47 Patient Location: Day Surgery Unit Vital Signs Most Recent Imported Vital Signs: Most Recent Vital Signs Temp Pulse Resp BP Pulse Ox 36.5 C 71 16 107/51 L 93 08/22/23 10:45 08/22/23 10:45 08/22/23 10:45 08/22/23 10:45 08/22/23 10:45 Pain Score Most Recent Pain Score: Most Recent Pain Score Pain Level 0 08/22/23 10:45 Assessment Mental Status: Awake (Alert & Oriented to Patient Baseline) Airway and Respiratory Function: Patent airway with normal (patient baseline) respiratory exam Cardiovascular Function: Hemodynamically Stable Hydration Status: Adequately Hydrated Nausea & Vomiting: No Nausea or Vomiting Pain: Pt. Denies Any Pain Peripheral Nerve Block: Patient did not receive a nerve block
[2023-08-22 11:00] VITALS: BP 113/54; PULSE 70; RESP 18; TEMP 36.5; O2SAT 96
[2023-08-22 11:13] VITALS: BP 113/66; PULSE 60; RESP 18; TEMP 36.3; O2SAT 96
== END 2023-08-22 11:43 | disposition home or self-care (01) ==
PROVIDERS: PCP Nurse Practitioner; Visit Provider Student in an Organized Health Care Education/Training Program
PROC: 01N54ZZ Release Median Nerve, Percutaneous Endoscopic Approach (ICD-10-PCS; CPT 29848; principal; 2023-08-22 10:45)
DX: M65.4 Radial styloid tenosynovitis [de Quervain] (principal); G56.02 Carpal tunnel syndrome, left upper limb
CPT/HCPCS: 29848; 25000; J0131; J0690; J1100; J1885; J2001; J2405

== ENCOUNTER 2023-09-04 12:19 | Day surgery (SDC) | payer OTHER, SELFPAY ==
[2023-09-04 12:38] VITALS: BP 139/87; PULSE 76; RESP 16; TEMP 36; O2SAT 97
--- NOTE | 2023-09-04 12:47 | PDOC.DSDIS_ITS ---
Date of service: 09/04/23 Time of Service: 12:49 Discharge Plan Disposition Patient Disposition: Home Condition: Good Discharge Details Reason For Visit: Right carpal tunnel syndrome and cyst Attending Provider: George Lentz Primary Care Provider: Rubina Quigley Home Meds and New Rx's Prescriptions: New hydrocodone-acetaminophen 5-325 mg tablet 1 tab PO Q6H PRN (Reason: severe pain) Qty: 4 0RF Rx Instructions: Take one tablet up to every 6 hours as needed for severe postoperative pain Continued armour thryoid 90 mg PO DAILY AM Patient Comments: 60mg in am and 30mg in pm Rx Instructions: 30 mg PO daily pm omega-3 fatty acids [Fish Oil Concentrate] 1,000 mg capsule 1,000 mg PO DAILY cholecalciferol (vitamin D3) 125 mcg (5,000 unit) capsule 125 mcg PO DAILY multivitamin Tablet 1 tab PO DAILY glucosamine-chondroitin [Osteo Bi-Flex] 250-200 mg tablet 2 tab PO BID Rx Instructions: give after food/meal Estring 2 mg (7.5 mcg /24 hour) ring 1 vag ring vaginal [id number] Qty: 1 3RF oxybutynin chloride 5 mg tablet extended release 24hr 5 mg PO DAILY Qty: 90 3RF levocetirizine 5 mg tablet 5 mg PO QPM acetaminophen 500 mg tablet 1,000 mg PO Q8H PRN Qty: 90 0RF Rx Instructions: Take two tablets up to every 8 hours as needed for pain Discharge Instructions Stand Alone Forms: Tor Sharpe Tunnel Release Referrals: George Lentz MD [ [facility] STAFF PHYSICIAN] - Activity:: Elevate Remove Dressings/Wound Care:: 48 hours Shower/Bathe:: 48 hours Diet:: As Tolerated Discharge Orders Discharge Orders: Discharge Order (Routine); Ordered 09/04/23 Ordered By: Tiffanie Pederson
[2023-09-04] MEDS: Lactated Ringers 1,000 ML 80 ML IV (12:50)
--- NOTE | 2023-09-04 13:46 | W.ANESPRE ---
General Info Date of Service Date Performed: 09/04/23 Height: 5 ft 2 in Weight: 110 kg Body Mass Index (BMI): 44.3 Surgical Procedure: Operation Date: 09/04/23 14:40 Proposed Procedure Side Surgeon p Wrist ECTR Right George Lentz MD Meds Allergies and Home Medications Allergies Allergy/AdvReac Type Severity Reaction Status Date / Time ibuprofen [From Advil] Allergy Verified 09/04/23 12:36 Home Medication Medication Instructions Recorded armour thryoid 90 mg PO DAILY AM 03/22/20 cholecalciferol (vitamin D3) 125 125 mcg PO DAILY 03/22/20 mcg (5,000 unit) capsule glucosamine-chondroitin 250 mg-200 2 tab PO BID 03/22/20 mg tablet (Osteo Bi-Flex) multivitamin 1 tab PO DAILY 03/22/20 omega-3 fatty acids 1,000 mg 1,000 mg PO DAILY 03/22/20 capsule (Fish Oil Concentrate) oxybutynin chloride 5 mg 5 mg PO DAILY #90 tabs 09/13/22 tablet,extended release 24 hr estradiol 2 mg (7.5 mcg/24 hour) 1 vag ring vaginal [id number] #1 ea 07/24/23 vaginal ring (Estring) acetaminophen 500 mg tablet 1,000 mg (2 x 500 mg) PO Q8H PRN 08/22/23 pain #90 tabs levocetirizine 5 mg tablet 5 mg PO QPM 09/03/23 hydrocodone 5 mg-acetaminophen 325 1 tab PO Q6H PRN severe pain #4 09/04/23 mg tablet tabs Current Visit Medications: Current Medications Generic Name Dose Route Start Last Admin Trade Name Isaacq PRN Reason Stop Dose Admin Acetaminophen 650 mg 09/04/23 12:46 Acetaminophen 325 Mg Tab PO 10/04/23 12:45 Q4H PRN PRN Hydrocodone Bitart/Acetaminophen 0 tab 09/04/23 12:46 Hydrocodone 5/Acetaminophen 325 Tab PO 10/04/23 12:45 Q3H PRN PRN Pain Ringer's Solution 1,000 mls @ 80 mls/hr 09/04/23 06:00 09/04/23 12:50 IV 10/03/23 23:59 80 mls/hr INFUSION DOLLY Administration Cefazolin Sodium/Dextrose 2 gm in 50 mls @ 100 mls/hr 09/04/23 06:00 Ancef Duplex IVPB 09/04/23 16:00 PREOP DOLLY IV Miscellaneous Supplies 1 each 09/04/23 06:00 Iv Access IV 10/03/23 23:59 DIRECTED DOLLY Sodium Chloride 0 ml 09/04/23 06:00 Normal Saline Flush 10 Ml Syr IV 10/03/23 23:59 PRN PRN Sodium Chloride 0 ml 09/04/23 06:00 Normal Saline 10 Ml Vial IJ 10/03/23 23:59 DIRECTED PRN Sterile Water 0 ml 09/04/23 06:00 Water,Injection,Sterile 10 Ml Vial IJ 10/03/23 23:59 DIRECTED PRN PFSH Active Problems Active Problems: Problem Status Onset Code Ganglion cyst of dorsum of right wrist M67.431 Bilateral carpal tunnel syndrome G56.03 De Quervain's tenosynovitis, left M65.4 Urge incontinence N39.41 Foreign body Tinnitus, bilateral H93.13 Asymmetrical sensorineural hearing loss H90.3 Hypothyroidism E03.9 Internal derangement of right knee M23.91 Encounter for screening for other viral diseases Z11.59 Right Achilles tendinitis M76.61 Medical History Medical History Cervical polyp Surgical History Surgical History History of D&C History of colonoscopy Tobacco Smoking/Tobacco Use Status: Never Second hand exposure: No Alcohol Alcohol Intake: current Alcohol intake frequency: holidays/special occasions only Alcohol type: beer, wine and hard liquor Substance Use Substance use: Never Substance use type: does not use Vital Signs and Lab Results Vital Signs Most Recent Vital Signs in EMR: Most Recent Vital Signs Temp Pulse Resp BP Pulse Ox 36.0 C L 76 16 139/87 97 09/04/23 12:38 09/04/23 12:38 09/04/23 12:38 09/04/23 12:38 09/04/23 12:38 Lab Results Blood Type / Crossmatch: No Data to Display Complete Blood Count: No Data to Display Complete Metabolic Panel: No Data to Display Liver Function Panel: No Data to Display Coagulation Panel: No Data to Display Cardiac Panel: No Data to Display Arterial Blood Gas: No Data to Display Venous Blood Gas: No Data to Display Pancreas Panel: No Data to Display Thyroid Panel: No Data to Display Infectious Disease: No Data to Display Blood Cultures: No Data to Display Toxicology Panel: No Data to Display Anesthesia Assessment and Plan Anesthesia History Personal History: No History of Anesthesia Complications Family History: No Family History of Anesthesia Complications Exercise Tolerance Exercise Tolerance: Metabolic Equivalents>4 Pertinent Negatives Pertinent Negatives: No Symptoms of GERD, No Major Cardiovascular Symptoms or Complaints, No Major Pulmonary Symptoms or Complaints and No History of CVA/TIA Cardiac & Pulmonary Exam Cardiac Exam: Normal S1/S2 Heart Sounds Pulmonary Exam: Clear Bilateral Breath Sounds Implantable Cardiac Device Does patient have a Pacemaker or an ICD?: No Airway Exam Known Difficult Airway: No Mallampati Class: 2 Mouth Opening: Normal (> 3cm) Thyromental Distance: Greater than 3 cm Neck Range of Motion: Full ROM Neck Circumference: Normal Teeth Condition: Normal Dentition ASA Classification ASA Score: ASA 3 Emergency Case?: No NPO Status NPO Status: NPO Clears >2 hours, Solids >8 hours Anesthesia Plan Resuscitation Status: Full Code Anesthesia Technique: General Anesthesia Airway Planned: Natural Airway Monitors Used: Standard Monitors
[2023-09-04 13:51] VITALS: BMI 44.3
--- NOTE | 2023-09-04 14:15 | HPE_ITS ---
Assessment and Plan Assessment and plan (1) Bilateral carpal tunnel syndrome: Status: Acute Assessment and plan: Mary is a 63-year-old female with carpal tunnel syndrome of the right side. Please see the office note complete detailed history. She is here today for the right carpal tunnel surgery and will proceed. Risk and benefits of the surgery once again discussed. She elects to proceed. There has been no change to her health history. No chest pain shortness of breath. No fevers or chills. History of Present Illness History of Present Illness Chief Complaint: Right carpal tunnel syndrome Narrative: Mary is a 63-year-old female who has known carpal tunnel syndrome of the right side. She has a successful carpal tunnel release on the left side. Please see the office note from 08/31/2023. She is here for right carpal tunnel surgery. Review of Systems All systems reviewed & are unremarkable except as noted in HPI and below PFSH All Active Problems Ganglion cyst of dorsum of right wrist (Acute) Bilateral carpal tunnel syndrome (Acute) De Quervain's tenosynovitis, left (Acute) s/p left DeQuervain's release DOS: 08/21/23 40 mg Depo-Medrol injection: 11/09/22 Urge incontinence (Acute) Foreign body (Acute) Tinnitus, bilateral (Acute) Asymmetrical sensorineural hearing loss (Acute) Hypothyroidism (Chronic) Internal derangement of right knee (Acute) Encounter for screening for other viral diseases (Acute) Right Achilles tendinitis (Acute) Medical History Cervical polyp Surgical History History of D&C History of colonoscopy Family History Father Non Hodgkin's lymphoma Mother Diabetes Pancreatic cancer Has tested BRCA Negative Thyroid disorder Hypertension Brother Hypertension Sister Hypertension Social History Smoking/Tobacco Use Status: Never Second Hand Exposure: No Smoking risk assessment performed?: Yes Alcohol Intake: current Alcohol Intake frequency: holidays/special occasions only Alcohol type: beer, wine and hard liquor Drug use: Never Substance use type: does not use Housing: house Current gender identity: female Do you feel safe at home: Yes Do you feel safe in your relationship?: Yes Meds Allergies and Home Medications Allergies Allergy/AdvReac Type Severity Reaction Status Date / Time ibuprofen [From Advil] Allergy Verified 09/04/23 12:36 Home Medications Medication Instructions Recorded Confirmed Type torie thryoid 90 mg PO DAILY AM 03/22/20 09/04/23 History cholecalciferol (vitamin D3) 125 125 mcg PO DAILY 03/22/20 09/04/23 History mcg (5,000 unit) capsule glucosamine-chondroitin 250 mg-200 2 tab PO BID 03/22/20 09/04/23 History mg tablet (Osteo Bi-Flex) multivitamin 1 tab PO DAILY 03/22/20 09/04/23 History omega-3 fatty acids 1,000 mg 1,000 mg PO DAILY 03/22/20 09/04/23 History capsule (Fish Oil Concentrate) oxybutynin chloride 5 mg 5 mg PO DAILY #90 tabs 09/13/22 09/04/23 Rx tablet,extended release 24 hr estradiol 2 mg (7.5 mcg/24 hour) 1 vag ring vaginal [id number] #1 ea 07/24/23 0 09/03/23 Rx vaginal ring (Estring) acetaminophen 500 mg tablet 1,000 mg (2 x 500 mg) PO Q8H PRN 08/22/23 09/04/23 Rx pain #90 tabs levocetirizine 5 mg tablet 5 mg PO QPM 09/03/23 09/04/23 History hydrocodone 5 mg-acetaminophen 325 1 tab PO Q6H PRN severe pain #4 09/04/23 Rx mg tablet tabs Exam Resp Auscultation: clear to auscultation bilaterally Cardio Rate: regular rate Rhythm: regular rhythm Results Last Vital Signs Temp 36.0 C L 09/04/23 12:38 Pulse 76 09/04/23 12:38 Resp 16 09/04/23 12:38 BP 139/87 09/04/23 12:38 Pulse Ox 97 09/04/23 12:38
[2023-09-04] MEDS: Lidocaine 1% Multi-Dose W/EPI 1/100,000 50 ML VIAL (14:22)
[2023-09-04] MEDS: Sodium Bicarbonate 50 MEQ/50 ML VIAL (14:22)
[2023-09-04 14:42] VITALS: BP 122/77; PULSE 80; RESP 16; TEMP 36.4; O2SAT 94
[2023-09-04 14:57] VITALS: BP 97/69; PULSE 71; RESP 18; TEMP 36.4; O2SAT 94
--- NOTE | 2023-09-04 15:05 | W.PM.OP ---
Date of service: 09/04/23 Time of Service: 14:00 Operative Note Operative Note DATE OF PROCEDURE: 09/04/23 PRE-OP DIAGNOSIS: Right Carpal Tunnel Syndrome POST-OP DIAGNOSIS: same PROCEDURE: Right Endoscopic Carpal Tunnel Release SURGEON: George Lentz ANESTHESIA TYPE: General:No Airway Refer to Anesthesia Record ESTIMATED BLOOD LOSS: 0 PATHOLOGY: none sent TOURNIQUET TIME: 4 COMPLICATIONS: None Patient was transported to: same day Patient's condition: stable Indications: I have seen Mary in clinic for symptoms of carpal tunnel syndrome. The numbness, tingling, and pain limited function. Clinical exam findings with nerve conduction tests confirmed the diagnosis of carpal tunnel syndrome. Nonoperative measures such as bracing, time, activity modifications had been tried but disability and pain persisted. I discussed carpal tunnel release with the patient. I reviewed the risks of the procedure to include, but not limited to, bleeding, infection, pain, stiffness, incomplete release, damage to nerves or vessels, persistent numbness, recurrence. Despite these risks, the patient elected to proceed. Findings: There was tightened carpal tunnel. This was dilated and released successfully with the endoscopic with increased space within the tunnel. The antebrachial fascia was released proximally freeing the median nerve at the wrist. Procedure Description: Mary was greeted in the preoperative holding area where the correct side was identified and marked. The consent was reviewed with the patient and signed. The history and physical was updated. All questions were answered. Mary was taken back to the operating room. The patient was placed into the supine position on the operating room table with the right arm on an arm board. A nonsterile tourniquet was placed high onto the arm. All bony prominences were well padded. The right arm was then prepped with Chloraprep and draped in a standard fashion with stockinette and extremity drape. A timeout to confirm correct identity, side and site, procedure, allergies, anesthesia, and medical concerns was performed. The surgical site was marked in the volar wrist creases in line with the radial border of the fourth ray. This area was anesthetized with approximately 6cc of 1% Lidocaine. The limb was then exsanguinated with an Esmarch. The skin was incised with a 15 blade, approximately 1cm. The skin only was cut and the deeper tissue was dissected bluntly with a tenotomy scissor, avoiding passing nerve and venous structures. The fascia was penetrated and opened bluntly. A two-prong skin hook was placed under this proximal fascial edge. A series of hamate finders were used to identify and dilate the carpal tunnel. Synovial elevator was used to free synovial attachments to the underside of the transverse carpal ligament. My thumb was kept in the palm to alexa the distal extent of the carpal tunnel and correctly position the hand. The Microaire endoscope was inserted without difficulty and without resistance. Excellent visualization showed horizontally running fibers of the transverse carpal ligament (TCL). The distal extent of the TCL was visualized and the end of the scope palpated with the thumb. The blade was elevated and withdrawn from distal to proximal. The TCL was split into two flaps. The endoscope was reinserted to confirm complete release and any remnant ligament was incised. The scope was withdrawn and the proximal aspect of the carpal tunnel was grossly inspected and appeared release with the median nerve visible. The antebrachial fascia at the level of the wrist was then freed from the overlying skin and then the underlying median nerve with blunt dissection. This was transected longitudinally for about 3cm proximal to the wrist incision. The wound was then irrigated with easy flow of irrigant distally and proximally. The incision was closed with a single 4-0 Nylon suture. The wound was dressed with Xeroform, Gauze, Kerlix and Fidel. The tourniquet was deflated with the initial dressing and held with some pressure. Blood flow returned easily to all digits with capillary refill less than 2 seconds. The patient tolerated the procedure well and was returned to the Same Day Surgery area in a stable condition suffering no known complication.
--- NOTE | 2023-09-04 15:28 | W.ANESPOSTOP ---
Postoperative Evaluation Date, Time and Location Date Performed: 09/04/23 Time Performed: 14:51 Patient Location: Day Surgery Unit Vital Signs Most Recent Imported Vital Signs: Most Recent Vital Signs Temp Pulse Resp BP Pulse Ox 36.4 C L 71 18 97/69 L 94 09/04/23 14:57 09/04/23 14:57 09/04/23 14:57 09/04/23 14:57 09/04/23 14:57 Pain Score Most Recent Pain Score: Most Recent Pain Score Pain Level 0 09/04/23 14:57 Assessment Mental Status: Awake (Alert & Oriented to Patient Baseline) Airway and Respiratory Function: Patent airway with normal (patient baseline) respiratory exam Cardiovascular Function: Hemodynamically Stable Hydration Status: Adequately Hydrated Nausea & Vomiting: No Nausea or Vomiting Pain: Pt. Denies Any Pain Peripheral Nerve Block: Patient did not receive a nerve block
== END 2023-09-04 15:43 | disposition home or self-care (01) ==
PROVIDERS: PCP Nurse Practitioner; Visit Provider Student in an Organized Health Care Education/Training Program
PROC: 01N54ZZ Release Median Nerve, Percutaneous Endoscopic Approach (ICD-10-PCS; CPT 29848; principal; 2023-09-04 14:30)
DX: G56.01 Carpal tunnel syndrome, right upper limb (principal); M67.431 Ganglion, right wrist
CPT/HCPCS: 29848; J1100; J1885; J2001; J2004; J2405; J2704

== ENCOUNTER 2023-10-26 02:39 | Outpatient (CLI) | payer OTHER, SELFPAY ==
[2023-10-26 12:48] LABS: FREE T4 0.68 ng/dL (0.76-1.46); TSH 1.07 uIU/Ml (0.36-3.74)
[2023-10-26 21:52] LABS: T3, Total 200 ng/dL (97-169)
== END 2023-10-26 02:40 | disposition home or self-care (01) ==
LOC: LBO 02:40
PROVIDERS: PCP Nurse Practitioner; Visit Provider Internal Medicine Endocrinology, Diabetes & Metabolism
DX: E03.9 Hypothyroidism, unspecified (principal)
CPT/HCPCS: 36415; 84439; 84443; 84480

== ENCOUNTER 2024-02-07 15:39 | Outpatient (CLI) | payer OTHER, SELFPAY ==
--- NOTE | 2024-02-07 14:15 | DI.RAD_ITS ---
Exam(s) XR KNEE RT 3V AP,LAT,CARLITOS EXAM: XR KNEE RT 3V AP,LAT,CARLITOS CLINICAL HISTORY: RIGHT KNEE PAIN. TECHNIQUE: 2D digital imaging was performed. COMPARISON: CR XR KNEE RT 3V AP,LAT,CARLITOS from 01/29/2020 FINDINGS: 3 views No evidence of fracture or obvious joint effusion. However, there is significant progression of dege nerative change when compared to January 2020. Significant joint space narrowing medial compartment is now noted. There also appears to be an osteochondral defect on the articular surface of the medial f emoral condyle now evident, not previously present. Lateral compartment exhibits normal height. Advanced degenerative changes in the patellofemoral comp artment noted, more so than previous. IMPRESSION: Significant progression of degenerative changes in the right knee when compared to prior images of 2019. There also appears to be an osteochondral defect in the medial compartment. DATA REPOSITORY: RADIATION DOSE DELIVERED:
--- NOTE | 2024-02-07 14:15 | DI.RAD_ITS ---
Exam(s) XR KNEE LT 3V AP,LAT,CARLITOS EXAM: XR KNEE LT 3V AP,LAT,CARLITOS CLINICAL HISTORY: LEFT KNEE PAIN. TECHNIQUE: 2D digital imaging was performed. COMPARISON: None FINDINGS: 3 views There is no evidence fracture or obvious joint effusion. However, there is [id number] narrowing of the medial compartment. There is also subarticular lucency in the medial femoral condyle which has appearance of a probable degenerative subarticular cyst more so than an actual OCD. There are margin al osteophytes off the inner aspect of the medial compartment. Lateral compartment exhibits normal h eight. Mild degenerative changes in the patellofemoral compartment. IMPRESSION: Advanced degenerative narrowing of the medial compartment. There is a degenerative subarticular cyst in the medial femoral condyle. DATA REPOSITORY: RADIATION DOSE DELIVERED:
== END 2024-02-07 15:40 | disposition home or self-care (01) ==
LOC: DIORS 15:39
PROVIDERS: PCP Nurse Practitioner; Visit Provider Physician Assistant
DX: M25.562 Pain in left knee (principal)
CPT/HCPCS: 73562

== ENCOUNTER → 2024-02-20 11:31 | Outpatient (CLI) | payer OTHER, SELFPAY ==
--- NOTE | 2024-02-20 13:58 | DI.MAMMO_ITS ---
Exam(s) MAMMO SCREENING EXAM: MAMMO SCREENING CLINICAL HISTORY: screening Z12.31 TECHNIQUE: Mammograms were interpreted according to the usual protocol including computer analysis w [employer] (mytaxi) CAD system, tomosynthesis and C-view imaging. COMPARISON: 2015 through 2021 FINDINGS: The breasts are composed of scattered fibroglandular densities, Breast Density category B. No suspicious masses or suspicious microcalcifications are seen. No skin thickening or abnormal axillary lymph nodes are seen. There has been no significant change from prior exams. IMPRESSION: BI-RADS Category 1, Negative mammogram Yearly screening mammography is recommended. Breast Density - Category B, scattered fibroglandular densities. A negative radiographic report should not delay biopsy if a dominant or clinically suspicious mass is present. Up to ten percent of cancers are not identified on mammography. A negative report may reinforce clinical impression. Adenosis and dense breasts may obscure an underlying neoplasm. False positive reports average 6 to 10%. Patient will receive a letter notifying them of these results.
== END ==
PROVIDERS: PCP Nurse Practitioner; Visit Provider Obstetrics & Gynecology
DX: Z12.31 Encounter for screening mammogram for malignant neoplasm of breast (principal)
CPT/HCPCS: 77063; 77067

== ENCOUNTER 2024-07-09 02:06 | Outpatient (CLI) | payer OTHER, SELFPAY ==
[2024-07-09 10:03] LABS: Abs Immature Grans 0.01 10^3/uL (0.0-0.06); Absolute Basophil Count 0.04 10^3/uL (0.0-0.2); Absolute Eosinophil Count 0.17 10^3/uL (0.0-0.7); Absolute Lymphocyte Count 2.08 10^3/uL (1.2-3.4); Absolute Neutrophil Count 2.86 10^3/uL (1.2-6.7); Basophils % 0.7 %; Eosinophils % 3.1 %; HCT 40.3 % (36.0-46.0); HGB 13.2 g/dL (11.2-15.7); Immature Grans % 0.2 %; Lymphocytes % 37.4 %; MCH 27.3 pg (27.0-33.0); MCHC 32.8 % (32.0-36.0); MCV 83 fL (80-95); MPV 8.3 fL (8.0-11.0); Monocytes % 7.2 %; Neutrophils % 51.4 %; Platelet Count 271 10^3/uL (130-400); RBC 4.84 10^6/uL (3.93-5.22); RDW 15.5 % (11.7-14.6); RDW-SD 46.8 fL; WBC 5.56 10^3/uL (4.4-10.8)
[2024-07-09 10:27] LABS: ALT 27 U/L (14-59); AST 20 U/L (15-37); Albumin 3.5 g/dL (3.4-5.0); Alkaline Phosphatase 95 U/L (46-116); Anion Gap 7.5 mmol/L (3-11); BUN 22 mg/dL (7-18); Bilirubin, Total 0.44 mg/dL (0.2-1.0); CO2 29.5 mmol/L (21.0-32.0); CREATININE 0.8 mg/dL (0.55-1.02); Calcium 8.9 mg/dL (8.5-10.1); Calculated LDL 74 mg/dL (<100); Chloride 105 mmol/L (98-107); Cholesterol 179 mg/dL (<200); Estimated GFR 83.26 (mL/min/1.73m2); Glucose 89 mg/dL (74-106); HDL Cholesterol 98 mg/dL (40-60); Potassium 4.5 mmol/L (3.5-5.1); Sodium 142 mmol/L (136-145); TSH 0.99 uIU/mL (0.36-3.74); Triglyceride 35 mg/dL (<150)
[2024-07-09 19:01] LABS: T3, Total 218 ng/dL (97-169)
== END 2024-07-09 02:07 | disposition home or self-care (01) ==
PROVIDERS: Internal Medicine Endocrinology, Diabetes & Metabolism; PCP Nurse Practitioner; Visit Provider Nurse Practitioner
DX: E03.9 Hypothyroidism, unspecified (principal); E04.9 Nontoxic goiter, unspecified; Z00.00 Encounter for general adult medical examination without abnormal findings; Z79.899 Other long term (current) drug therapy
CPT/HCPCS: 36415; 80053; 80061; 84439; 84443; 84480; 85025

== ENCOUNTER 2024-08-07 10:09 | Outpatient (CLI) | payer OTHER, SELFPAY ==
--- NOTE | 2024-08-07 10:00 | RT.EKG_ITS ---
APPROVED REPORT Exam: Resting ECG Reason for Exam: PRE-OP Patient Location: O HR:53 bpm ECG Measurements Heart Rate 53 AXIS AR 138 P 40 QRSd 120 QRS -15 QT 450 T 1 QTc 423 Conclusion Sinus rhythm...normal P axis, V-rate 50- 99 Nonspecific T abnormalities, anterior leads...T <-0.10mV, V2-V4
== END 2024-08-07 10:10 | disposition home or self-care (01) ==
PROVIDERS: PCP Nurse Practitioner; Visit Provider Nurse Practitioner
DX: Z01.818 Encounter for other preprocedural examination (principal)
CPT/HCPCS: 93005; 93010

== ENCOUNTER 2024-09-03 07:47 | Outpatient (CLI) | payer OTHER, SELFPAY ==
--- NOTE | 2024-09-03 07:15 | DI.RAD_ITS ---
Exam(s) XR CHEST 2V PA LATERAL EXAM: XR CHEST 2V PA LATERAL CLINICAL HISTORY: cough, ? pneumonia TECHNIQUE: 2D digital imaging was performed of the chest. Two images were obtained. PA and lateral views were obtained. COMPARISON: No exams were available for comparison FINDINGS: MEDIASTINUM: Normal. HEART: Normal. PULMONARY VASCULATURE: Normal. LUNGS: Clear. PLEURAL SPACE: No pleural effusion or pneumothorax. BONE:Within normal limits for the patient's age. OTHER FINDINGS:Normal. IMPRESSION: No acute pulmonary findings. DATA REPOSITORY: RADIATION DOSE DELIVERED:
== END 2024-09-03 08:07 ==
PROVIDERS: PCP Nurse Practitioner; Visit Provider Physician Assistant
DX: R05.9 Cough, unspecified (principal)
CPT/HCPCS: 71046

== ENCOUNTER 2024-09-11 01:04 | Outpatient (CLI) | payer OTHER, SELFPAY ==
[2024-09-11 11:07] LABS: HCT 42.5 % (36.0-46.0); HGB 13.9 g/dL (11.2-15.7); MCH 26.8 pg (27.0-33.0); MCHC 32.7 % (32.0-36.0); MCV 82 fL (80-95); MPV 8.5 fL (8.0-11.0); Platelet Count 313 10^3/uL (130-400); RBC 5.19 10^6/uL (3.93-5.22); RDW-SD 47.6 fL; WBC 7.27 10^3/uL (4.4-10.8)
[2024-09-11 11:20] LABS: Anion Gap 8.8 mmol/L (3-11); BUN 25 mg/dL (7-18); CO2 27.2 mmol/L (21.0-32.0); CREATININE 0.8 mg/dL (0.55-1.02); Chloride 106 mmol/L (98-107); Estimated GFR 83.26 (mL/min/1.73m2); Glucose 93 mg/dL (74-106); Potassium 4.3 mmol/L (3.5-5.1); Sodium 142 mmol/L (136-145)
[2024-09-12 10:04] LABS: IgA 164 mg/dL (85-499); IgG 1797 mg/dL (610-1616); IgM 69 mg/dL (35-242)
[2024-09-12 14:25] LABS: Tissue Transglutaminase IgA <4.0 CU (<20.0)
== END 2024-09-11 01:05 | disposition home or self-care (01) ==
LOC: LBO 01:04
PROVIDERS: Nurse Practitioner Family; PCP Nurse Practitioner; Visit Provider Student in an Organized Health Care Education/Training Program
DX: M17.11 Unilateral primary osteoarthritis, right knee (principal); Z01.818 Encounter for other preprocedural examination
CPT/HCPCS: 36415; 80048; 82784; 85027; 83013

== ENCOUNTER 2024-09-11 15:33 | Outpatient (CLI) | payer OTHER, SELFPAY ==
--- NOTE | 2024-09-11 09:15 | DI.RAD_ITS ---
Exam(s) XR STANDING ALIGNMENT EXAM: XR STANDING ALIGNMENT CLINICAL HISTORY: R TKR planning. TECHNIQUE: 2D digital imaging was performed. Standing AP views were performed from the pelvis throu gh the ankles. COMPARISON: CR XR KNEE RT 3V AP,LAT,CARLITOS from 02/07/2024 CR XR KNEE LT 3V AP,LAT,CARLITOS from 02/07/2024 FINDINGS: BONES: No acute fracture is present. No bony destructive lesion is seen. Leg length discrepancy: No significant overall leg length discrepancy. JOINTS: Knees: Moderate narrowing of the medial femoral tibial joint space of the right knee. Severe narrowing of the medial femoral tibial joint space of the left knee. Periarticular spurring bilater ally. The ankle joints are unremarkable. The hip joints are unremarkable. SOFT TISSUE: Normal. IMPRESSION: Advanced degenerative changes both knees, left greater than right.. No significant leg length discrepancy. DATA REPOSITORY: RADIATION DOSE DELIVERED:
== END 2024-09-11 15:34 | disposition home or self-care (01) ==
LOC: DIORS 15:34
PROVIDERS: PCP Nurse Practitioner; Visit Provider Physician Assistant
DX: M17.11 Unilateral primary osteoarthritis, right knee (principal)
CPT/HCPCS: 77073

== ENCOUNTER 2024-09-24 07:24 | Day surgery (SDC) | payer OTHER, SELFPAY ==
[2024-09-24] VITALS (43 sets, daily range): BP systolic 104–160; BP diastolic 53–72; PULSE 56–78; RESP 9–23; TEMP 36.3–36.6; O2SAT 92–100; BMI 46.0
--- NOTE | 2024-09-24 07:09 | W.ANESPRE ---
General Info Date of Service Date Performed: 09/24/24 Height: 5 ft 2 in Weight: 114.305 kg Body Mass Index (BMI): 46.0 Surgical Procedure: Operation Date: 09/24/24 09:55 Proposed Procedure Side Surgeon p Knee Total Arthroplasty, Cementless CR Right George Lentz MD Meds Allergies and Home Medications Allergies Allergy/AdvReac Type Severity Reaction Status Date / Time ibuprofen (From Advil) Allergy Other (See Verified 09/24/24 07:47 Comment) Home Medication ?Medication ?Instructions ?Recorded armour thryoid 90 mg PO DAILY AM 03/22/20 cholecalciferol (vitamin D3) 125 125 mcg PO DAILY 03/22/20 mcg (5,000 unit) capsule glucosamine-chondroitin 250 mg-200 2 tab PO BID 03/22/20 mg tablet (Osteo Bi-Flex) multivitamin 1 tab PO DAILY 03/22/20 omega-3 fatty acids 1,000 mg 1,000 mg PO DAILY 03/22/20 capsule (Fish Oil Concentrate) acetaminophen 500 mg tablet 1,000 mg (2 x 500 mg) PO Q8H PRN 08/22/23 pain #90 tabs celecoxib 200 mg capsule (Celebrex) 200 mg PO BID #60 caps 06/16/24 estradiol 2 mg (7.5 mcg/24 hour) 1 vag ring vaginal [id number] #1 ea 08/13/24 vaginal ring (Estring) oxybutynin chloride 5 mg 5 mg PO DAILY #90 tabs 09/23/24 tablet,extended release 24 hr Current Visit Medications: Current Medications Generic Name Dose Route Start Last Admin Trade Name Freq PRN Reason Stop Dose Admin Acetaminophen 1,000 mg 09/24/24 06:00 Acetaminophen 500 Mg Tab PO 09/24/24 23:59 PREOP DOLLY Celecoxib 400 mg 09/24/24 06:00 Celecoxib 200 Mg Cap PO 09/24/24 23:59 PREOP DOLLY Gabapentin 300 mg 09/24/24 06:00 Gabapentin 300 Mg Cap PO 09/24/24 23:59 PREOP DOLLY Cefazolin Sodium/Dextrose 2 gm in 50 mls @ 100 mls/hr 09/24/24 06:00 Ancef Duplex IVPB 09/24/24 23:59 PREOP DOLLY Tranexamic Acid/Sodium Chloride 1,000 mg in 100 mls @ 600 mls/hr 09/24/24 06:00 IVPB 09/24/24 23:59 PREOP DOLLY Ringer's Solution 1,000 mls @ 80 mls/hr 09/24/24 07:15 IV 10/24/24 07:14 [facility] IV Miscellaneous Supplies 1 each 09/24/24 06:00 Iv Access IV 09/24/24 23:59 DIRECTED DOLLY Sodium Chloride 0 ml 09/24/24 06:00 Normal Saline Flush 10 Ml Syr IV 09/24/24 23:59 PRN PRN Sodium Chloride 0 ml 09/24/24 06:00 Normal Saline 10 Ml Vial IJ 09/24/24 23:59 DIRECTED PRN Sterile Water 0 ml 09/24/24 06:00 Water,Injection,Sterile 10 Ml Vial IJ 09/24/24 23:59 DIRECTED PRN PFSH Active Problems Active Problems: Problem Status Onset Code Osteoarthritis of left knee Acute M17.12 Osteoarthritis of right knee Acute M17.11 Ganglion cyst of dorsum of right wrist Acute M67.431 Urge incontinence Acute N39.41 Foreign body Acute Tinnitus, bilateral Acute H93.13 Asymmetrical sensorineural hearing loss Acute H90.3 Hypothyroidism Chronic E03.9 Internal derangement of right knee Acute M23.91 Encounter for screening for other viral diseases Acute Z11.59 Right Achilles tendinitis Acute M76.61 Medical History Medical History Cervical polyp Surgical History Surgical History Right carpal tunnel syndrome ECTR: 09/04/2023 Left carpal tunnel syndrome s/p left ECTR DOS: 08/21/23 De Quervain's tenosynovitis, left s/p left DeQuervain's release DOS: 08/21/23 40 mg Depo-Medrol injection: 11/09/22 History of D&C History of colonoscopy Tobacco Smoking/Tobacco Use Status: Never Second hand exposure: No Alcohol Alcohol Intake: current Alcohol intake frequency: holidays/special occasions only Alcohol type: beer, wine and hard liquor Substance Use Substance use: Never Substance use type: does not use Vital Signs and Lab Results Vital Signs Most Recent Vital Signs in EMR: Temp Pulse Resp BP Pulse Ox 36.6 C 67 16 160/69 H 98 09/24/24 07:53 09/24/24 07:53 09/24/24 07:53 09/24/24 07:53 09/24/24 07:53 Lab Results Blood Type / Crossmatch: No Data to Display Complete Blood Count: White Blood Count 7.27 10^3/uL (4.4-10.8) 09/11/24 09:36 Red Blood Count 5.19 10^6/uL (3.93-5.22) 09/11/24 09:36 Hemoglobin 13.9 g/dL (11.2-15.7) 09/11/24 09:36 Hematocrit 42.5 % (36.0-46.0) 09/11/24 09:36 Platelet Count 313 10^3/uL (130-400) 09/11/24 09:36 Complete Metabolic Panel: Sodium 142 mmol/L (136-145) 09/11/24 09:36 Potassium 4.3 mmol/L (3.5-5.1) 09/11/24 09:36 Chloride 106 mmol/L (98-107) 09/11/24 09:36 Carbon Dioxide 27.2 mmol/L (21.0-32.0) 09/11/24 09:36 BUN 25 mg/dL (7-18) H 09/11/24 09:36 Creatinine 0.8 mg/dL (0.55-1.02) 09/11/24 09:36 Est GFR (CKD-EPI 2020) 83.26 (mL/min/1.73m2) 09/11/24 09:36 Calcium 9.0 mg/dL (8.5-10.1) 09/11/24 09:36 Glucose 93 mg/dL (74-106) 09/11/24 09:36 Liver Function Panel: No Data to Display Coagulation Panel: No Data to Display Cardiac Panel: No Data to Display Arterial Blood Gas: No Data to Display Venous Blood Gas: No Data to Display Pancreas Panel: No Data to Display Thyroid Panel: No Data to Display Infectious Disease: No Data to Display Blood Cultures: No Data to Display Toxicology Panel: No Data to Display Anesthesia Assessment and Plan Anesthesia History Personal History: No History of Anesthesia Complications Family History: No Family History of Anesthesia Complications Exercise Tolerance Exercise Tolerance: Metabolic Equivalents>4 Cardiac & Pulmonary Exam Cardiac Exam: Normal S1/S2 Heart Sounds Pulmonary Exam: Clear Bilateral Breath Sounds Implantable Cardiac Device Does patient have a Pacemaker or an ICD?: No Airway Exam Known Difficult Airway: No Mallampati Class: 2 Mouth Opening: Normal (> 3cm) Thyromental Distance: Greater than 3 cm Neck Range of Motion: Full ROM Neck Circumference: Normal Teeth Condition: Normal Dentition ASA Classification ASA Score: ASA 3 Emergency Case?: No NPO Status NPO Status: NPO Clears >2 hours, Solids >8 hours Anesthesia Plan Resuscitation Status: Full Code Anesthesia Technique: Spinal Anesthesia Airway Planned: Natural Airway Pain Management: Surgeon and patient request nerve block Monitors Used: Standard Monitors Preoperative Comments:: 64 yo female for TKA. Sig PMHx: Hypothyroid (on replacement), never smoker, occ EtOH. EKG: Sinus. Denies reflux. Appropriately NPO. Previous Anes: - ECTR x 2, dexmed/prop, natural airway, no issues.
[2024-09-24] MEDS: Acetaminophen 500 MG TAB 1000 MG PO (08:08)
[2024-09-24] MEDS: Celecoxib 200 MG CAP 400 MG PO (08:09)
[2024-09-24] MEDS: Gabapentin 300 MG CAP PO (08:09)
[2024-09-24] MEDS: Lactated Ringers 1,000 ML 80 ML IV (08:25)
--- NOTE | 2024-09-24 09:49 | W.ANESNERVE ---
Nerve Block Single Injection Procedure Date and Time Date Performed: 09/24/24 Procedure Start: 09:40 Location Where Procedure Performed Procedure Location: Day Surgery Unit Reason Performed: Postoperative Analgesia Requesting Provider: George Lentz Timeout Performed Timeout Performed: Yes Monitoring Used ECG, Blood Pressure and SpO2 Sterility Sterility: Hand Hygiene, Surgical Cap, Surgical Mask, Sterile Gloves and Chlorhexidine Sedation Given During Procedure Sedation Given (Indicate Dose Given): Versed IV Dose:: 2 mg Patient Mental Status Patient Mental Status: Sedate with meaningful communication Nerve Block 1st Nerve Block: Laterality: Right Block Type: Adductor Canal Ultrasound Image Saved?: Yes Needle / Catheter Used: 100mm SonoPlex II Local Anesthetic Bolus (Indicate Dose Given): Lidocaine used for local infiltration of skin, Injected in 3-5ml increments after negative blood aspiration and Bupivacaine 0.25% Dose:: 7 mL Additives (Indicate Dose Given): None Ultrasound: Sterile probe cover and gel used Nerve Stimulator: Supplement to Ultrasound use and No twitch or parasthesia noted < 0.5 mA Paresthesia: None Procedure Tolerated: No Complications Procedure Outcome: Successful Performed By: Reza Donahue 2nd Nerve Block: Laterality: Right Block Type: Other (afcn) Ultrasound Image Saved?: Yes Needle / Catheter Used: 100mm SonoPlex II Local Anesthetic Bolus (Indicate Dose Given): Injected in 3-5ml increments after negative blood aspiration and Bupivacaine 0.25% Dose:: 4 mL Additives (Indicate Dose Given): None Ultrasound: Sterile probe cover and gel used Nerve Stimulator: Supplement to Ultrasound use and No twitch or parasthesia noted < 0.5 mA Paresthesia: None Procedure Tolerated: No Complications Procedure Outcome: Successful Performed By: Reza Donahue
--- NOTE | 2024-09-24 10:16 | W.PM.DSUDISC ---
Date of service: 09/24/24 Discharge Plan Disposition Patient Disposition: Home Condition: Good Discharge Details Reason For Visit: Right Knee Arthritis Attending Provider: George Lentz Primary Care Provider: Rubina Quigley Home Meds and New Rx's Prescriptions: New aspirin 81 mg tablet,delayed release (DR/EC) 81 mg PO BID Qty: 60 0RF acetaminophen 500 mg tablet 1,000 mg PO Q8H PRN (Reason: pain) Qty: 90 3RF pantoprazole 40 mg tablet,delayed release (DR/EC) 40 mg PO DAILY Qty: 30 0RF dexamethasone 4 mg tablet 4 mg PO DAILY Qty: 2 0RF Rx Instructions: Starting Post-Operative Day #1 (Day after surgery) docusate sodium [Colace] 100 mg capsule 100 mg PO BID PRNQty: 10 0RF gabapentin 300 mg capsule 300 mg PO QHS Qty: 14 0RF oxycodone 5 mg tablet 5 mg PO Q4H PRNQty: 18 0RF Continued armour thryoid 90 mg PO DAILY AM Patient Comments: 60mg in am and 30mg in pm Rx Instructions: 30 mg PO daily pm omega-3 fatty acids [Fish Oil Concentrate] 1,000 mg capsule 1,000 mg PO DAILY cholecalciferol (vitamin D3) 125 mcg (5,000 unit) capsule 125 mcg PO DAILY multivitamin Tablet 1 tab PO DAILY glucosamine-chondroitin [Osteo Bi-Flex] 250-200 mg tablet 2 tab PO BID Rx Instructions: give after food/meal Estring 2 mg (7.5 mcg /24 hour) ring 1 vag ring vaginal [id number] Qty: 1 1RF Patient Comments: in place oxybutynin chloride 5 mg tablet extended release 24hr 5 mg PO DAILY Qty: 90 3RF celecoxib [Celebrex] 200 mg capsule 200 mg PO BID Qty: 60 1RF Discontinued acetaminophen 500 mg tablet 1,000 mg PO Q8H PRN Qty: 90 0RF Rx Instructions: Take two tablets up to every 8 hours as needed for pain Discharge Instructions Additional Instructions: Total Knee Discharge Instructions Activity: The most important activity is to walk and to work on gentle motion (both flexion and extension). You should try to take short walks a few times a day. It is important that when resting you work on keeping the knee straight. Avoid putting a pillow behind the knee as this will encourage flexion. Work on range of motion exercises as provided by Physical Therapy. - Start outpatient physical therapy within 2 weeks. - You should wear the SAAD hose on both legs for 2 weeks. You may remove these at night. You may also use any compression sock in place of the SAAD hose. - Utilize [employer] to review exercises, see videos on exercises and obtain basic information pertaining to your surgery and your recovery. Dressing: Remove the Fidel wrap by 2 days after your surgery and put on the SAAD stocking given to you from the hospital. Keep the surgical dressing (underneath the FIDEL wrap) in place for at least one week. After the first week it may be removed and replaced with light gauze and tape or nothing. The wound and dressing may get wet after 3 days but avoid soaking the dressing or otherwise it will need to be changed. Many people prefer covering the dressing with cling wrap (saran wrap) to minimize it from getting soaked. If it gets wet, just pat dry. If it starts to peel off then it will need to be changed. Medications: - You should take Tylenol and anti-inflammatory Celebrex as your primary pain control medications. If the Celebrex is too expensive or not covered, please call the office for another alternative (Advil/Ibuprofen or Naproxen/Aleve) - You have been prescribed a stronger pain medication Oxycodone for breakthrough pain, take as needed as prescribed. - You have also been prescribed a stomach acid reduction agent Pantoprozole to help reduce stomach acid and reflux. - You have been prescribed Gabapentin to take at night for restlessness and nerve pain. - You will be taking Aspirin 81mg twice a day for DVT prevention unless instructed otherwise. - You have also been prescribed Decadron to take to control post-operative nausea and pain. You will start this tomorrow. - If you have constipation you should take Colace or Miralax (both [id number]). It takes most people 3-4 days to have a bowel movement. Follow-up: 2 weeks If you have any acute concerns or questions, please do not hesitate to contact the office at [phone]. You may contact Dr. Lentz with any questions after hours through the hospital at [phone] or on his cell phone at [phone]. Referrals: George Lentz MD [ [facility] STAFF PHYSICIAN] - Equipment/Supplies: Walker Activity:: Elevate Remove Dressings/Wound Care:: Do Not Remove Shower/Bathe:: 72 hours and Cover Diet:: As Tolerated Discharge Orders Discharge Orders: Discharge Order (Routine); Ordered 09/24/24 Ordered By: Cecile Vance DS: Diagnosis Discharge Diagnosis (1) Osteoarthritis of right knee: Status: Acute
[2024-09-24] MEDS: ceFAZolin 2 GM/50 ML BAG IVPB (10:37)
[2024-09-24] MEDS: TRANEXAMIC ACID/SOD. CHL. 1,000 MG/100 ML BAG 600 MG IVPB (10:45)
[2024-09-24] MEDS: fentaNYL 100 MCG/2 ML VIAL IVP (12:26)
[2024-09-24] MEDS: HYDROmorphone 1 MG/ML SYR IVP (12:38)
--- NOTE | 2024-09-24 14:24 | W.ANESPOSTOP ---
Postoperative Evaluation Date, Time and Location Date Performed: 09/24/24 Time Performed: 14:25 Patient Location: Day Surgery Unit Vital Signs Most Recent Imported Vital Signs: Most Recent Vital Signs Temp Pulse Resp BP Pulse Ox 36.3 C L 76 16 128/57 L 97 09/24/24 13:34 09/24/24 13:34 09/24/24 13:34 09/24/24 13:34 09/24/24 13:34 Pain Score Most Recent Pain Score: Most Recent Pain Score Pain Level 4 09/24/24 13:34 Assessment Mental Status: Awake (Alert & Oriented to Patient Baseline) Airway and Respiratory Function: Patent airway with normal (patient baseline) respiratory exam Cardiovascular Function: Hemodynamically Stable Hydration Status: Adequately Hydrated Nausea & Vomiting: No Nausea or Vomiting Pain: Pain is tolerable per patient Peripheral Nerve Block: Regional nerve block not resolved at time of post operative discharge
--- NOTE | 2024-09-24 14:56 | PT.INIE ---
PT Notes Visit Reasons: Right Knee Arthritis Physical Therapy Day Surgery Initial Evaluation Date: 09/24/2024 Referring Doctor: Dr. Lentz PT Orders: PT CONSULT: Status post Ortho surgery Precautions: Weightbearing as tolerated RLE, activities as tolerated,TEDS x 2 weeks Patient Profile/Admitting Diagnosis: Patient is 64-year-old female presenting status post elective right TKA (with nerve block) by Dr. Lentz on 09/24/2024. Postop uncomplicated PMHX: Cervical polyp Surgical History Right carpal tunnel syndrome ECTR: 09/04/2023Left carpal tunnel syndrome s/p left ECTR DOS: 08/21/23De Quervain's tenosynovitis, left s/p left DeQuervain's release DOS: 08/21/23 40 mg Depo-Medrol injection: 11/09/22History of D&C History of colonoscopy Social History/Home Situation: Patient resides in a single level home 12 steps to enter with left rail. Her sister will be staying with her initially. Patient full-time employed.. Patient drives patient independent with ADLs, ambulation, cooking, shopping, recreational activities including hiking and gym. Patient independent with med management Equipment Owned/DME: Patient has access to rollator, quad cane. Patient issued and fitted for FWW from [facility] Subjective: Patient reports she was very active prior to surgery including lifting weights at the gym until recently. Objective: [] General Observation: Patient semireclined in stretcher with sister present. Cryo/Cuff to right knee, IV access Mental Status: Alert and oriented x 4, motivated, cooperative, pleasant agreeable to participate in evaluation Pain: 2/10 right knee/distal quad ROM: [] Right Upper Extremity: Within normal limits Left Upper Extremity: Within normal limits Right Lower Extremity: WNL except knee 0-100 degrees Left Lower Extremity: Within normal limits Strength: [] Right Upper Extremity: 5/5 Left Upper Extremity: 5/5 Right Lower Extremity: Hip flexion: 3 -/5; hip abduction: 3 -/5; hip extension: 3 -/5; knee extension: 3/5; knee flexion: 2+/5 ankle DF: 3/5 ; ankle PF: 3/5 Left Lower Extremity: 5/5 Sensation: Intact bilateral lower extremities patient notes slightly diminished paresthesia to right heel nurse and anesthesiologist aware. Bed Mobility/Transfers: [] Supine to sit independent Sit to stand SBA Stand to sit [SBA Bed to chair SBA FWW Gait: Patient ambulates with FWW initially for first 25 feet contact-guard assist with tactile and verbal cues to facilitate knee extension on the right at weight acceptance. Patient then progressed to standby assist for remainder of 120 feet. Patient demonstrates reciprocal pattern with decreased knee flexion during swing phase. Patient able to achieve heel strike. Patient required cues to keep FWW slightly away from body to provide increased ability. Stairs: 12 steps with 1 rail and cane contact-guard assist step to pattern Balance: [] Static Sitting: Normal Dynamic Sitting: Good Static Standing: Good Dynamic Standing: Fair plus Special Tests: [] Mobility Limitations Standardized Measure [] [facility] AM-PAC 6 clicks Basic Mobility Inpatient Short Form: [] Raw Score: 22 CMS Score: 20.91% Informed Consent/Education: Patient instructed in purpose of PT consult. Packet containing TKA exercise protocol has been given to patient. Treatment: 50371 Education and training on initial set of exercises x 5 reps that can be done at home have been completed with patient. 05708 Education for car transfer including simulated transfer with her sister present. Sister is able to provide assistance with managing seat backrest if necessary to allow for foot clearance . Assessment: Patient is a 64 yo female presents with clinical signs and symptoms consistent with current/admitting diagnoses that have resulted to mobility limitations, gait instability, generalized weakness, and impairment of motor control as demonstrated by the following impairment level findings: 1. Decreased strength to right knee major muscle groups 2. Impaired standing balance 3. Limitation of joint range of motion in right knee 4. Impaired standing functional activity tolerance 5. pain right knee Impairments are contributing to the following functional limitations: 1. Inability to safely ambulate without assistive device 2. Increase completion time for mobility ADL performance 3. Increased fall risk 4. Difficulty performing stairs alone safely Patient is assessed as a moderate complexity based on the following: History: 64-year-old female with impairment level findings, functional limitations, and past medical history as indicated above Examination: Demonstrable impairment in strength, balance, and mobility level with underlying impairments and functional limitations as documented above Presentation: evolving Decision Making: moderate Goals: N/A. Plan of Care/Treatment Plan: N/A. DISCHARGE RECOMMENDATIONS: Home with HEP and Outpatient PT as scheduled for 10/08/2023 TREATMENT CODE/TIME: 31796, 51952, 49105/ [id number] Thank you for the opportunity to participate in the care of this patient. Millie Gonzales, PT [facility]
--- NOTE | 2024-09-24 18:39 | ROE_ITS ---
Operative Note Operative Note PRE-OP DIAGNOSIS: Right Knee Osteoarthritis POST-OP DIAGNOSIS: same PROCEDURE: Right Total Knee Replacement SURGEON: George Lentz WINDOWS DESKTOP SUPPORT: Cecile Vance ANESTHESIA TYPE: Spinal Refer to Anesthesia Record ESTIMATED BLOOD LOSS: 100 PATHOLOGY: none sent TOURNIQUET TIME: 0 COMPLICATIONS: None Patient was transported to: PACU Patient's condition: stable Implants: 1. Depuy Attune Cementless Cruciate Retaining Femoral Component, Size 5 2. Depuy Attune Cementless Fixed Bearing Tibial Component, Size 4 3. Depuy Attune 5x5mm CR/FB Poly 4. Depuy Attune Patellar Component, Size 35 Indications: I have seen Mary in clinic for symptoms of knee arthritis, confirmed with radiographic findings. She has exhausted nonoperative methods and was having significant limitations in daily function and desired better function and less pain. I discussed the technical details of a knee replacement. I explained the risks of the procedure to include, but not limited to, bleeding, infection, pain, stiffness, fracture, damage to nerves and vessels, damage to muscles and tendons, loosening, need for repeat procedure, blood clot and cardiopulmonary demise. Despite these risks, Mary elected to proceed. Findings: There was significant signs of arthritis throughout the knee. Procedure Description: Mary was greeted in the preoperative holding area where the correct side was identified and marked. The consent was reviewed with the patient and signed. The history and physical was updated. All questions were answered. Preoperative medications were administered: Acetaminophen 1000mg, Celebrex 400mg, and Gabapentin 300mg. An adductor canal block was then administered by the anesthesia team in the DSU. Mary was taken back to the operating room. A spinal anesthestic was then administered. The patient was placed into the supine position on the operating room table. Posts were placed for positioning during the procedure. All bony prominences were well padded. Prophylactic antibiotics in the form of Cefazolin were administered. 1g of Tranxemic Acid was given intravenously within 30 minutes of incision. The right leg was then prepped with Chloraprep and draped in a standard fashion with impervious stockinette. A second prep with Chloraprep was performed prior to application of Iodine impregnated skin protection. A timeout to confirm correct identity, side and site, procedure, allergies, anesthesia, and medical concerns was performed. With the knee in some flexion, a midline incision was made overlying the knee. Full thickness skin flaps were raised once the extensor mechanism was encountered. These were raised medially and laterally. Any bleeding was controlled with electrocautery. Once the extensor mechanism was fully exposed, a medial parapatellar arthrotomy was performed in a flexed position. All bleeding from the arthrotomy and the geniculate arteries was coagulated. A medial subperiosteal peel was performed with electrocautery to the midcoronal plane. The fat pad was removed while keeping the patellar tendon protected. The anterior distal femur synovium was removed for later visualization. The ACL and PCL were resected and the anterior horn of the lateral meniscus was transected. The knee was then flexed with the patella everted. Using a step drill, and based on preoperative templating, the femoral canal was entered. This was done with a step drill without any difficulty. The intramedullary distal femoral cut guide was inserted, set to a 5 degree valgus cut and 9mm cut thickness. The distal femoral cut guide was then held in position and pinned. With the soft tissues protected, the distal cut was performed. This was passed over a few times to ensure a planar cut. I then turned attention to the tibia. The extramedullary guide was placed onto the leg. The distal aspect was slid medial to adjust for position of center of ankle and stay in line with shaft of the tibia. Approximately 3-5 degrees of posterior slope was kept in the proximal cutting guide. The center of the guide was aligned with the PCL. The stylus was used to assess cut thickness. The medial side, most involved side, was set for a 4mm cut. This was then held in position and pinned into place with 2 additional pins and a cross pin for stability. The medial and lateral collateral ligaments were protected and the cut was performed. With this completed, it was assessed and noted to be of appropriate dimensions. The guide was removed. A spacer block was inserted and the knee was brought into extension. The 5mm spacer block provided full extension, without hyperextension and with stability of both the medial and lateral collateral ligaments was assessed. The pins from the femur and the tibia were then removed. The distal femur was then sized. The anterior stylus was placed onto the lateral ridge of the anterior femur. This indicated a size 5 femur. The external rotation of the guide was adjusted to 3 degrees to match the epicondylar axis, perpendicular to [place]?s line. The 4-in-1 cutting guide was the placed. The posterior medial femur cut was evaluated and appeared of good thickness. The spacer block was inserted underneath the cutting guide and stability was confirmed in 90 degrees of flexion. An herminia wing was used to confirm appropriate position of the anterior cut to avoid notching. This cutting guide was ensured to be flush on the cut surface and then pinned into place with headed pins. While protecting the soft tissues, quad tendon, and collateral ligaments, the anterior and posterior cuts were performed with a saw. The central two pins were removed and the posterior and anterior chamfers were cut next. The notch-cutting guide was placed. This was pinned to lateralize the femoral c omponent as much as possible while keeping it flush on the cut surface. This was then pinned into position. A reciprocating saw was used to make the notch cut. A rasp smoothed the cut surfaces. The medial and lateral menisci were removed. A trial femoral component was then inserted, impacted down to the cut surfaces, and the lug holes were drilled. A provisional trial tibial component was placed and the knee was brought through range of motion. There was noted to be excellent extension and flexion. There was no significant instability. The patella was tracking without thumbs. A size 5mm polyethylene component provided the best range of motion and stability with less than 2mm gapping with medial and lateral stress and full extension without significant hyperextension. The tibial cut surface was fully exposed. The tibia was then sized as a 4. The tibia had been previously marked during trialing to correspond to the center of the tibial component to help with rotation. The trial was aligned to this alexa, approximately rotated to the medial 1/3rd of the tibial tubercle. The trial was pinned into place. The tibia was prepared with a reamer and a keel punch and lug holes. The knee was then brought into extension and the patella was measured as 21mm. Using the patellar clamp and cut guide, this was resected to a flat surface with at least 13mm of thickness remaining. The size 35 patella fit the best. This was oriented and then clamped into position. The lugs were drilled. The trial components were removed. The final components were opened on the back table. The periosteal and capsular tissues, especially posteriorly, around the knee were then systematically injected with a periarticular cocktail consisting of 246mg of Ropivacaine, 0.5mg of Epinephrine, 0.08mg of Clonidine, and 30mg of Ketorolac, diluted to 100cc. On the back table, with the implants opened, the cement was mixed. One batch of high viscosity cement was prepared with vacuum assistance. After the cement was ready a small amount was placed on the cut surface of the patella and the patellar button was clamped into position and held. While the cement was hardening, the cementless knee components were placed. Starting with the tibial component, the tibia was subluxed anteriorly and the lug holes of the component were lined up. The tibia was then impacted with an impactor and mallet until the tibial component was in contact with the tibia. The final polyethylene component was inserted. Then, the femoral component was inserted. The lug holes were aligned and the component was impacted into position. The knee was irrigated with Surgiphor Betadine solution. This was allowed to sit in the knee for 3 minutes and then it was irrigated out with saline. After the cement had finally cured, approximately 15min, the clamp was removed from the patella and the knee was taken through range of motion. The patella was tracking with a no-thumbs technique. The capsule was then reapproximated with a No. 1 Vicryl at multiple locations. The capsule was finally closed with a No. 2 Stratafix, barbed suture. The second dosing of 1g TXA was started. Deep tissues were then reapproximated with 0 Vicryl and 2-0 Vicryl. The skin was closed with a running 3-0 Monocryl in a subcuticular fashion. This was reinforced with skin glue. A Mepilex silver dressing was applied along with a [id number] JNO wrap. A CryoCuff was applied. Mary was transferred to the hospital bed without difficulty an suffering no apparent complication. Mary has a good prognosis. Physical therapy will start today and without restrictions, weight-bearing as tolerated. Aspirin 81mg BID will be used for DVT prophylaxis. Date of Procedure: 09/24/24
== END 2024-09-24 15:35 | disposition home or self-care (01) ==
PROVIDERS: PCP Nurse Practitioner; Visit Provider Student in an Organized Health Care Education/Training Program
PROC: (CPT 27447; principal; 2024-09-24 09:45)
DX: M17.11 Unilateral primary osteoarthritis, right knee (principal); G89.18 Other acute postprocedural pain; M25.561 Pain in right knee
CPT/HCPCS: 27447; 64447; 64450; 97110; 97162; 97530; C1776; J0665; J0690; J1100; J1171; J2003; J2250; J2371; J2401; J2405; J2704; J3010

== ENCOUNTER 2024-10-06 15:32 | Outpatient (CLI) | payer OTHER, SELFPAY ==
--- NOTE | 2024-10-06 09:15 | DI.RAD_ITS ---
Exam(s) XR STANDING ALIGNMENT EXAM: XR STANDING ALIGNMENT CLINICAL HISTORY: 1ST POST OP S/P R TKA. TECHNIQUE: 2D digital imaging was performed. COMPARISON: CR XR STANDING ALIGNMENT from 09/11/2024 FINDINGS: Three views There has been interval placement of a right knee prosthesis which appears satisfactory. There is advanced narrowing of the medial compartment of the opposite-left knee again noted as well a s degenerative subarticular cysts in the subarticular medial femoral condyle of the left knee. Milde r degenerative changes are noted in the lateral compartment of the left knee. Hips appear unremarkable as do the ankles. Bone density normal. No osseous lesions. IMPRESSION: As above. DATA REPOSITORY: RADIATION DOSE DELIVERED:
--- NOTE | 2024-10-06 09:15 | DI.RAD_ITS ---
Exam(s) XR KNEE RT 1V EXAM: XR KNEE RT 1V CLINICAL HISTORY: 1st POST OP S/P R TKA. TECHNIQUE: 2D digital imaging was performed. COMPARISON: CR XR KNEE LT 3V AP,LAT,CARLITOS from 02/07/2024 FINDINGS: Single lateral view of right knee: Position alignment of the components of the recently placed right knee prosthesis appear satisfactory . No fracture or loosening evident. No radiographic evidence of osteomyelitis. Soft tissue swelling is noted anterior to the patella. IMPRESSION: Satisfactory appearance of the prosthesis components on this lateral view. DATA REPOSITORY: RADIATION DOSE DELIVERED:
== END 2024-10-06 15:33 | disposition home or self-care (01) ==
LOC: DIORS 15:32
PROVIDERS: PCP Nurse Practitioner; Visit Provider Student in an Organized Health Care Education/Training Program
DX: Z96.651 Presence of right artificial knee joint (principal); Z47.1 Aftercare following joint replacement surgery
CPT/HCPCS: 73560; 77073

== ENCOUNTER 2024-11-12 08:23 | Day surgery (SDC) | payer OTHER, SELFPAY ==
[2024-11-12] VITALS (27 sets, daily range): BP systolic 85–135; BP diastolic 33–79; PULSE 46–74; RESP 9–26; TEMP 36.2–37; O2SAT 90–100; BMI 45.8
--- NOTE | 2024-11-12 07:26 | PDOC.DSDIS_ITS ---
Date of service: 11/12/24 Discharge Plan Disposition Patient Disposition: Home Condition: Good Discharge Details Reason For Visit: L TKR Attending Provider: George Lentz Primary Care Provider: Rubina Quigley Home Meds and New Rx's Prescriptions: New celecoxib 200 mg capsule 200 mg PO BID Qty: 60 0RF aspirin 81 mg tablet,delayed release (DR/EC) 81 mg PO BID Qty: 60 0RF pantoprazole 40 mg tablet,delayed release (DR/EC) 40 mg PO DAILY Qty: 30 0RF dexamethasone 4 mg tablet 4 mg PO DAILY Qty: 2 0RF gabapentin 300 mg capsule 300 mg PO QHS Qty: 14 0RF oxycodone 5 mg tablet 5 mg PO Q4H MDD 6 tabs PRN (Reason: pain) Qty: 20 0RF Continued armour thryoid 90 mg PO DAILY AM Patient Comments: 60mg in am and 30mg in pm Rx Instructions: 30 mg PO daily pm omega-3 fatty acids [Fish Oil Concentrate] 1,000 mg capsule 1,000 mg PO DAILY cholecalciferol (vitamin D3) 125 mcg (5,000 unit) capsule 125 mcg PO DAILY multivitamin Tablet 1 tab PO DAILY glucosamine-chondroitin [Osteo Bi-Flex] 250-200 mg tablet 2 tab PO BID Rx Instructions: give after food/meal calcium citrate 250 mg calcium tablet 250 mg PO DAILY L.acidophil-L.plantar-Bifido 7 15 billion cell capsule PO Estring 2 mg (7.5 mcg /24 hour) ring 1 vag ring vaginal [id number] Qty: 1 4RF Patient Comments: in place oxybutynin chloride 5 mg tablet extended release 24hr 5 mg PO DAILY Qty: 90 3RF acetaminophen 500 mg tablet 1,000 mg PO Q8H PRN (Reason: pain) Qty: 90 3RF docusate sodium [Colace] 100 mg capsule 100 mg PO BID PRNQty: 10 0RF Discontinued celecoxib [Celebrex] 200 mg capsule 200 mg PO BID Qty: 60 1RF Discharge Instructions Additional Instructions: Total Knee Discharge Instructions Activity: The most important activity is to walk and to work on gentle motion (both flexion and extension). You should try to take short walks a few times a day. It is important that when resting you work on keeping the knee straight. Avoid putting a pillow behind the knee as this will encourage flexion. Work on range of motion exercises as provided by Physical Therapy. - Start outpatient physical therapy within 2 weeks. - You should wear the SAAD hose on both legs for 2 weeks. You may remove these at night. You may also use any compression sock in place of the SAAD hose. - Utilize [employer] to review exercises, see videos on exercises and obtain basic information pertaining to your surgery and your recovery. Dressing: Remove the Fidel wrap by 2 days after your surgery and put on the SAAD stocking given to you from the hospital. Keep the surgical dressing (underneath the FIDEL wrap) in place for at least one week. After the first week it may be removed and replaced with light gauze and tape or nothing. The wound and dressing may get wet after 3 days but avoid soaking the dressing or otherwise it will need to be changed. Many people prefer covering the dressing with cling wrap (saran wrap) to minimize it from getting soaked. If it gets wet, just pat dry. If it starts to peel off then it will need to be changed. Medications: - You should take Tylenol and anti-inflammatory Celebrex as your primary pain control medications. If the Celebrex is too expensive or not covered, please call the office for another alternative (Advil/Ibuprofen or Naproxen/Aleve) - You have been prescribed a stronger pain medication Oxycodone for breakthrough pain, take as needed as prescribed. - You have also been prescribed a stomach acid reduction agent Pantoprozole to help reduce stomach acid and reflux. - You have been prescribed Gabapentin to take at night for restlessness and nerve pain. - You will be taking Aspirin 81mg twice a day for DVT prevention unless instructed otherwise. - You have also been prescribed Decadron to take to control post-operative nausea and pain. You will start this tomorrow. - If you have constipation you should take Colace or Miralax (both [id number]). It takes most people 3-4 days to have a bowel movement. Follow-up: 2 weeks If you have any acute concerns or questions, please do not hesitate to contact the office at [phone]. You may contact Dr. Lentz with any questions after hours through the hospital at [phone] or on his cell phone at [phone]. Referrals: George Lentz MD [ [facility] STAFF PHYSICIAN] - Equipment/Supplies: Walker Activity:: Activity as Tolerated Shower/Bathe:: 72 hours Diet:: As Tolerated Discharge Orders Discharge Orders: Discharge Order (Routine); Ordered 11/12/24 Ordered By: Eusebio Gonzalez DS: Diagnosis Discharge Diagnosis (1) Osteoarthritis of left knee: Status: Acute
--- NOTE | 2024-11-12 09:36 | W.ANESPRE ---
General Info Date of Service Date Performed: 11/12/24 Height: 5 ft 2 in Weight: 113.8 kg Body Mass Index (BMI): 45.8 Surgical Procedure: Operation Date: 11/12/24 10:40 Proposed Procedure Side Surgeon p Knee Total Arthroplasty Left George Lentz MD Actual Procedure Side Surgeon p Knee Total Arthroplasty Left George Lentz MD Pre-Op Diagnosis Post-Op Diagnosis osteoarthritis of the left knee Meds Allergies and Home Medications Allergies Allergy/AdvReac Type Severity Reaction Status Date / Time ibuprofen (From Advil) Allergy Other (See Verified 11/12/24 08:57 Comment) mushroom Allergy Other (See Unverified 11/12/24 08:57 Comment) Home Medication ?Medication ?Instructions ?Recorded armour thryoid 90 mg PO DAILY AM 03/22/20 cholecalciferol (vitamin D3) 125 125 mcg PO DAILY 03/22/20 mcg (5,000 unit) capsule glucosamine-chondroitin 250 mg-200 2 tab PO BID 03/22/20 mg tablet (Osteo Bi-Flex) multivitamin 1 tab PO DAILY 03/22/20 omega-3 fatty acids 1,000 mg 1,000 mg PO DAILY 03/22/20 capsule (Fish Oil Concentrate) oxybutynin chloride 5 mg 5 mg PO DAILY #90 tabs 09/23/24 tablet,extended release 24 hr acetaminophen 500 mg tablet 1,000 mg (2 x 500 mg) PO Q8H PRN 09/24/24 pain #90 tabs docusate sodium 100 mg capsule 100 mg PO BID PRN #10 caps 09/24/24 (Colace) Lactobacillus cap PO DAILY 11/11/24 acidophil,plantar-Bifido no.7 15 billion cell capsule calcium citrate 250 mg PO DAILY 11/11/24 estradiol 2 mg (7.5 mcg/24 hour) 1 vag ring vaginal [id number] #1 ea 11/11/24 vaginal ring (Estring) aspirin 81 mg tablet,delayed 81 mg PO BID #60 tabs 11/12/24 release celecoxib 200 mg capsule 200 mg PO BID #60 caps 11/12/24 dexamethasone 4 mg tablet 4 mg PO DAILY #2 tabs 11/12/24 gabapentin 300 mg capsule 300 mg PO QHS #14 caps 11/12/24 oxycodone 5 mg tablet 5 mg PO Q4H PRN pain #20 tabs 11/12/24 pantoprazole 40 mg tablet,delayed 40 mg PO DAILY #30 tabs 11/12/24 release Current Visit Medications: Current Medications Generic Name Dose Route Start Last Admin Trade Name Freq PRN Reason Stop Dose Admin Acetaminophen 1,000 mg 11/12/24 06:00 Acetaminophen 500 Mg Tab PO 11/12/24 23:59 PREOP DOLLY Acetaminophen 1,000 mg 11/12/24 07:24 Acetaminophen 500 Mg Tab PO 12/12/24 07:23 TID PRN PRN Analgesia Celecoxib 400 mg 11/12/24 06:00 Celecoxib 200 Mg Cap PO 11/12/24 23:59 PREOP DOLLY Docusate Sodium 100 mg 11/12/24 07:24 Docusate Sodium 100 Mg Cap PO 12/12/24 07:23 BID PRN PRN Constipation Gabapentin 300 mg 11/12/24 06:00 Gabapentin 300 Mg Cap PO 11/12/24 23:59 PREOP DOLLY Ringer's Solution 1,000 mls @ 80 mls/hr 11/12/24 06:00 IV 11/12/24 23:59 INFUSION DOLLY Cefazolin Sodium/Dextrose 2 gm in 50 mls @ 100 mls/hr 11/12/24 06:00 Ancef Duplex IVPB 11/12/24 23:59 PREOP DOLLY Tranexamic Acid/Sodium Chloride 1,000 mg in 100 mls @ 600 mls/hr 11/12/24 06:00 IVPB 11/12/24 23:59 PREOP DOLLY IV Miscellaneous Supplies 1 each 11/12/24 06:00 Iv Access IV 11/12/24 23:59 DIRECTED DOLLY Ondansetron HCl 4 mg 11/12/24 07:24 Ondansetron 4 Mg/2 Ml Vial IVP 12/12/24 07:23 Q6H PRN PRN Nausea Oxycodone HCl 0 mg 11/12/24 07:24 Oxycodone 5 Mg Tab PO 12/12/24 07:23 Q3H PRN PRN Pain Polyethylene Glycol 17 gm 11/12/24 07:24 Polyethylene Glycol 3350 17 Gm Packet PO 12/12/24 07:23 BID PRN PRN Constipation Sodium Chloride 0 ml 11/12/24 06:00 Normal Saline Flush 10 Ml Syr IV 11/12/24 23:59 PRN PRN Sodium Chloride 0 ml 11/12/24 06:00 Normal Saline 10 Ml Vial IJ 11/12/24 23:59 DIRECTED PRN Sterile Water 0 ml 11/12/24 06:00 Water,Injection,Sterile 10 Ml Vial IJ 11/12/24 23:59 DIRECTED PRN PFSH Active Problems Active Problems: Problem Status Onset Code History of total right knee replacement Acute 09/24/24 Z96.651 Osteoarthritis of left knee Acute M17.12 Ganglion cyst of dorsum of right wrist Acute M67.431 Urge incontinence Acute N39.41 Foreign body Acute Tinnitus, bilateral Acute H93.13 Asymmetrical sensorineural hearing loss Acute H90.3 Hypothyroidism Chronic E03.9 Internal derangement of right knee Acute M23.91 Encounter for screening for other viral diseases Acute Z11.59 Right Achilles tendinitis Acute M76.61 Medical History Medical History Cervical polyp Surgical History Surgical History Right carpal tunnel syndrome ECTR: 09/04/2023 Left carpal tunnel syndrome s/p left ECTR DOS: 08/21/23 De Quervain's tenosynovitis, left s/p left DeQuervain's release DOS: 08/21/23 40 mg Depo-Medrol injection: 11/09/22 History of D&C History of colonoscopy Tobacco Smoking/Tobacco Use Status: Never Passive smoking exposure: No Second hand exposure: No Alcohol Alcohol Intake: current Alcohol intake frequency: holidays/special occasions only Alcohol type: beer, wine and hard liquor Substance Use Substance use: Never Substance use type: does not use Vital Signs and Lab Results Vital Signs Most Recent Vital Signs in EMR: Most Recent Vital Signs Temp Pulse Resp BP Pulse Ox 37 C 66 17 135/76 95 11/12/24 08:45 11/12/24 08:45 11/12/24 08:45 11/12/24 08:45 11/12/24 08:45 Lab Results Blood Type / Crossmatch: No Data to Display Complete Blood Count: No Data to Display Complete Metabolic Panel: No Data to Display Liver Function Panel: No Data to Display Coagulation Panel: No Data to Display Cardiac Panel: No Data to Display Arterial Blood Gas: No Data to Display Venous Blood Gas: No Data to Display Pancreas Panel: No Data to Display Thyroid Panel: No Data to Display Infectious Disease: No Data to Display Blood Cultures: No Data to Display Toxicology Panel: No Data to Display Imaging and Studies Imaging and Studies Study information below may be from another EMR and interpreted by another provider. Please see original notes in EMR for more complete details. EKG Summary: EKG PATIENT NAME: Mary James UNIT #: [id number] ORDERING PROVIDER: Rubina Quigley PRIMARY CARE PROVIDER: Rubina Quigley DATE/TIME OF SERVICE: 08/07/2451 : 1960 PERFORMING LOCATION: [facility] APPROVED REPORT Exam: Resting ECG Reason for Exam: PRE-OP Patient Location: O HR:53 bpm ECG Measurements Heart Rate 53 AXIS CO 138 P 40 QRSd 120 QRS -15 QT 450 T1 QTc 423 Conclusion Sinus rhythm...normal P axis, V-rate 50- 99 Nonspecific T abnormalities, anterior leads...T <-0.10mV, V2-V4 <Electronically signed by FRANCIS WAY MD in OV> E-Sign Date: 08/07/24 E-Sign Time: 1038 Anesthesia Assessment and Plan Anesthesia History Personal History: No History of Anesthesia Complications Family History: No Family History of Anesthesia Complications Exercise Tolerance Exercise Tolerance: Metabolic Equivalents>4 Pertinent Negatives Pertinent Negatives: No Symptoms of GERD, No Major Cardiovascular Symptoms or Complaints, No Major Pulmonary Symptoms or Complaints and No History of CVA/TIA Cardiac & Pulmonary Exam Cardiac Exam: Normal S1/S2 Heart Sounds Pulmonary Exam: Clear Bilateral Breath Sounds Implantable Cardiac Device Does patient have a Pacemaker or an ICD?: No Airway Exam Known Difficult Airway: No Mallampati Class: 2 Mouth Opening: Normal (> 3cm) Thyromental Distance: Greater than 3 cm Neck Range of Motion: Full ROM Neck Circumference: Normal Teeth Condition: Normal Dentition ASA Classification ASA Score: ASA 3 Emergency Case?: No NPO Status NPO Status: NPO Clears >2 hours, Solids >8 hours Anesthesia Plan Resuscitation Status: Full Code Anesthesia Technique: Spinal Anesthesia Airway Planned: Natural Airway Pain Management: Surgeon and patient request nerve block Monitors Used: Standard Monitors Preoperative Comments:: 64 yo female for Left TKA. Sig PMHx: Hypothyroid (on replacement), never smoker, occ EtOH. EKG: Sinus. Denies reflux. Appropriately NPO. Previous Anes: - ECTR x 2, dexmed/prop, natural airway, no issues. - Right TKA, Chloroprocaine spinal with natural airway, left sided adductor canal block and ACFN block
[2024-11-12] MEDS: Gabapentin 300 MG CAP PO (09:40)
[2024-11-12] MEDS: Acetaminophen 500 MG TAB 1000 MG PO (09:40)
[2024-11-12] MEDS: Celecoxib 200 MG CAP 400 MG PO (09:40)
[2024-11-12] MEDS: Lactated Ringers 1,000 ML 80 ML IV (09:55)
--- NOTE | 2024-11-12 10:30 | W.ANESNERVE ---
Nerve Block Single Injection Procedure Date and Time Date Performed: 11/12/24 Procedure Start: 10:21 Location Where Procedure Performed Procedure Location: Day Surgery Unit Reason Performed: Postoperative Analgesia Requesting Provider: George Lentz Timeout Performed Timeout Performed: Yes Monitoring Used ECG, Blood Pressure and SpO2 Sterility Sterility: Hand Hygiene, Surgical Cap, Surgical Mask, Sterile Gloves and Chlorhexidine Sedation Given During Procedure Sedation Given (Indicate Dose Given): Versed IV Dose:: 2 mg and Precedex IV Dose:: 4 mcg Patient Mental Status Patient Mental Status: Sedate with meaningful communication Nerve Block 1st Nerve Block: Laterality: Left Block Type: Adductor Canal Ultrasound Image Saved?: Yes Needle / Catheter Used: 100mm SonoPlex II Local Anesthetic Bolus (Indicate Dose Given): Lidocaine used for local infiltration of skin, Injected in 3-5ml increments after negative blood aspiration and Bupivacaine 0.25% Dose:: 10 Additives (Indicate Dose Given): Normal Saline Ultrasound: Sterile probe cover and gel used Nerve Stimulator: Supplement to Ultrasound use and No twitch or parasthesia noted < 0.5 mA Paresthesia: None Procedure Tolerated: No Complications and Patient tolerated well Procedure Outcome: Successful Performed By: Pako Del Valle 2nd Nerve Block: Laterality: Left Block Type: Other (Anterior Femoral Cutaneous Nerve x3) Ultrasound Image Saved?: Yes Needle / Catheter Used: 100mm SonoPlex II Local Anesthetic Bolus (Indicate Dose Given): Lidocaine used for local infiltration of skin, Injected in 3-5ml increments after negative blood aspiration and Bupivacaine 0.25% Dose:: 10 ml split between three Additives (Indicate Dose Given): Normal Saline Ultrasound: Sterile probe cover and gel used Nerve Stimulator: Supplement to Ultrasound use and No twitch or parasthesia noted < 0.5 mA Paresthesia: None Procedure Tolerated: No Complications and Patient tolerated well Procedure Outcome: Successful Performed By: Pako Del Valle
[2024-11-12] MEDS: ceFAZolin 2 GM/50 ML BAG IVPB (11:00)
[2024-11-12] MEDS: TRANEXAMIC ACID/SOD. CHL. 1,000 MG/100 ML BAG 600 MG IVPB (11:04)
[2024-11-12] MEDS: fentaNYL 100 MCG/2 ML VIAL IVP ×2 (13:06→13:23)
[2024-11-12] MEDS: oxyCODONE 5 MG TAB PO (14:19)
--- NOTE | 2024-11-12 14:22 | W.ANESPOSTOP ---
Postoperative Evaluation Date, Time and Location Date Performed: 11/12/24 Time Performed: 13:35 Patient Location: Day Surgery Unit Vital Signs Most Recent Imported Vital Signs: Most Recent Vital Signs Temp Pulse Resp BP Pulse Ox 36.5 C 53 L 18 128/79 100 11/12/24 13:35 11/12/24 13:35 11/12/24 13:35 11/12/24 13:35 11/12/24 13:35 Pain Score Most Recent Pain Score: Most Recent Pain Score Pain Level 4 11/12/24 13:35 Assessment Mental Status: Awake (Alert & Oriented to Patient Baseline) Airway and Respiratory Function: Patent airway with normal (patient baseline) respiratory exam Cardiovascular Function: Hemodynamically Stable Hydration Status: Adequately Hydrated Nausea & Vomiting: No Nausea or Vomiting Pain: Pain is tolerable per patient Peripheral Nerve Block: Regional nerve block not resolved at time of post operative discharge
--- NOTE | 2024-11-12 15:05 | IN_ITS ---
PT Notes Visit Reasons: L TKR Physical Therapy Day Surgery Initial Evaluation Date: 11/12/2024 Referring Doctor: JESUS Ace PT Orders: PT CONSULT: S/P Ortho Surgery Precautions: WBAT on the L LE with AD. Patient Profile/Admitting Diagnosis: Mary is a 64-year-old female with degenerative joint disease of the left knee and is status post left total knee arthroplasty on postoperative day 0. PMHX: All Active Problems (Updated 09/24/24 @ 11:21 by Antelmo Adkins RN) History of total right knee replacement (Acute 09/24/24) Osteoarthritis of left knee (Acute) Ganglion cyst of dorsum of right wrist (Acute) Urge incontinence (Acute) Foreign body (Acute) Tinnitus, bilateral (Acute) Asymmetrical sensorineural hearing loss (Acute) Hypothyroidism (Chronic) Internal derangement of right knee (Acute) DEPO MEDROL 02/07/24 Encounter for screening for other viral diseases (Acute) Right Achilles tendinitis (Acute) Medical History Cervical polyp Surgical History Right carpal tunnel syndrome ECTR: 09/04/2023 Left carpal tunnel syndrome s/p left ECTR DOS: 08/21/23 De Quervain's tenosynovitis, left s/p left DeQuervain's release DOS: 08/21/23 40 mg Depo-Medrol injection: 11/09/22 History of D&C History of colonoscopy Social History/Home 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 Independent with all aspects of ADLs prior to surgery. Equipment Owned/DME: [employer] Subjective: Needed to use the bathroom right away to void urine. Reported 3/10 pain in the left knee at rest and with movement. Objective: General Observation: JON wraps to left LE. Cryo/Cuff to left knee. Mental Status: A and O x 4 Pain: 3/10 in the left knee at rest and with movement ROM: Right Lower Extremity: Hip flexion WFL. Hip abduction WFL. Knee flexion about 5 degrees to 15 degrees. Knee extension about -5 degrees ankle dorsiflexion WFL. Ankle plantarflexion WFL. Left Lower Extremity: Hip flexion WFL. Hip abduction WFL. Knee flexion 1about 0 degrees to 100 degrees. Knee extension about -10 degrees ankle dorsiflexion WFL. Ankle plantarflexion WFL. Strength: Right Lower Extremity: Hip flexors 5/5. Hip abductors 5/5. Knee flexors 5/5. Knee extensors 5/5. Ankle dorsiflexors 5/5. Ankle plantarflexors 5/5. Left Lower Extremity:Hip flexors 4-/5. Hip abductors 4-/5. Knee flexors 3-/5. Knee extensors 3-/5. Ankle dorsiflexors 5/5. Ankle plantarflexors 5/5. Sensation: Intact tested pain and light pressure in bilateral lower extremities Bed Mobility/Transfers: Minimal cueing provided for use of B hands as needed for support, movement seq uence, AD management, and posture to reduce fall risk and minimize pain report Supine to sit stand by assist Sit to stand contact guard assist with FWW Stand to sit standby assist with FWW Bed to chair standby assist with FWW Gait: Facilitate safe and correct performance of level surface ambulation covering a distance of 150 feet using front wheeled walker with step to gait pattern requiring only standby assist and minimal verbal cueing for correct limb movement sequence, AD management, weight distribution, and posture to minimize pain report and reduce fall risk. Stairs: Guided patient with safe and correct negotiation of 3 x 4 inch steps and 2 x 6 inch steps while holding onto 1 rail and using a single-point cane on the other side with step to gait pattern requiring only standby assist and minimal verbal cueing for AD management, safe movement sequence/technique, weight distribution onto rail and AD, and posture to minimize pain reported reduce fall risk. Balance: Static Sitting: Normal Dynamic Sitting: Normal Static Standing: Fair Dynamic Standing: Fair Special Tests: Mobility Limitations Standardized Measure [facility] AM-PAC 6 clicks Basic Mobility Inpatient Short Form: Raw Score: 23 CMS Score: 11% deficit Informed Consent/Education: Patient instructed in purpose of PT consult. Packet containing TKA exercise protocol has been given to patient. Education and training on initial set of exercises that can be done at home have been completed with patient. Trained patient with correct performance of exercises below to maximize motor control, joint flexibility, soft tissue extensibility of the L knee musculature: Access Code: [email or web address] URL: [email or web address] Date: 05/15/2025 Prepared by: Kaci Lobo Exercises - Supine Quad Set - 1 x daily - 7 x weekly - 1 sets - 10 reps - 5 hold - Supine Heel Slide - 1 x daily - 7 x weekly - 1 sets - 10 reps - 5 hold - Supine Ankle Pumps - 1 x daily - 7 x weekly - 1 sets - 10 reps - 5 hold - Small Range Straight Leg Raise - 1 x daily - 7 x weekly - 1 sets - 10 reps - 5 hold - Seated March - 1 x daily - 7 x weekly - 1 sets - 10 reps - 5 hold Assessment: Patient requires the use of a front wheeled walker for all mobility ADL performance to maximize independence and reduce fall risk. Patient presents with clinical signs and symptoms consistent with current/admitting diagnoses that have resulted to mobility limitations, gait instability, generalized weakness, and impairment of motor control as demonstrated by the following impairment level findings: 1. Decreased strength to left knee major muscle groups 2. Impaired standing balance 3. Limitation of joint range of motion in left knee Impairments are contributing to the following functional limitations: 1. Inability to safely ambulate without assistive device 2. Increase completion time for mobility ADL performance 3. Increased fall risk Patient is assessed as a [id number] moderate complexity based on the following: History: 64-year-old female with impairment level findings, functional limitations, and past medical history as indicated above Examination: Demonstrable impairment in strength, balance, and mobility level with underlying impairments and functional limitations as documented above Presentation: Evolving [id number] moderate complexity Decision Making: Goals: N/A. PT evaluation and 1-2 treatment sessions only for functional mobility training using recommended AD and for HEP instruction. Plan of Care/Treatment Plan: N/A. PT evaluation and 1-2 treatment session only for functional mobility training using recommended AD and for HEP instruction. DISCHARGE RECOMMENDATIONS: Home when medically cleared by orthopedic surgeon. Recommend outpatient PT services in order to optimize functional mobility outcomes and facilitate return to independent community ambulation without an assistive device. TREATMENT CODE/TIME: 75166 x 20 minutes for 1 unit, 00634 x 13 minutes for 1 unit (15: 0 5?15: 38). Thank you for the opportunity to participate in the care of this patient. Kaci Lobo PT, DPT, CLT [facility], [place]
--- NOTE | 2024-11-12 22:03 | ROE_ITS ---
Operative Note Operative Note PRE-OP DIAGNOSIS: Left Knee Osteoarthritis POST-OP DIAGNOSIS: same PROCEDURE: Left Total Knee Replacement SURGEON: George Lentz SEWER SEPARATION DESIGNER: Alexa Gonzalez ANESTHESIA TYPE: Spinal Refer to Anesthesia Record ESTIMATED BLOOD LOSS: 150 PATHOLOGY: none sent TOURNIQUET TIME: 0 COMPLICATIONS: None Patient was transported to: PACU Patient's condition: stable Implants: 1. Depuy Attune Cementless Cruciate Retaining Femoral Component, Size 5 2. Depuy Attune Cementless Fixed Bearing Tibial Component, Size 5 3. Depuy Attune 5x7mm CR/FB Poly 4. Depuy Attune Patellar Component, Size 35 Indications: I have seen Mary in clinic for symptoms of knee arthritis, confirmed with radiographic findings. She has exhausted nonoperative methods and was having significant limitations in daily function and desired better function and less pain. She has had a successul replacement on the right side. I discussed the technical details of a knee replacement. I explained the risks of the procedure to include, but not limited to, bleeding, infection, pain, stiffness, fracture, damage to nerves and vessels, damage to muscles and tendons, loosening, need for repeat procedure, blood clot and cardiopulmonary demise. Despite these risks, Juno elected to proceed. Findings: There was significant signs of arthritis throughout the knee. Procedure Description: Mary was greeted in the preoperative holding area where the correct side was identified and marked. The consent was reviewed with the patient and signed. The history and physical was updated. All questions were answered. Preoperative medications were administered: Acetaminophen 1000mg, Celebrex 400mg, and Gabapentin 300mg. An adductor canal block was then administered by the anesthesia team in the D[facility]. Mary was taken back to the operating room. A spinal anesthestic was then administered. The patient was placed into the supine position on the operating room table. Posts were placed for positioning during the procedure. All bony prominences were well padded. Prophylactic antibiotics in the form of Cefazolin were administered. 1g of Tranxemic Acid was given intravenously within 30 minutes of incision. The left leg was then prepped with Chloraprep and draped in a standard fashion with impervious stockinette. A second prep with Chloraprep was performed prior to application of Iodine impregnated skin protection. A timeout to confirm correct identity, side and site, procedure, allergies, anesthesia, and medical concerns was performed. With the knee in some flexion, a midline incision was made overlying the knee. Full thickness skin flaps were raised once the extensor mechanism was encountered. These were raised medially and laterally. Any bleeding was controlled with electrocautery. Once the extensor mechanism was fully exposed, a medial parapatellar arthrotomy was performed in a flexed position. All bleeding from the arthrotomy and the geniculate arteries was coagulated. A medial subperiosteal peel was performed with electrocautery to the midcoronal plane.] The fat pad was removed while keeping the patellar tendon protected. The anterior distal femur synovium was removed for later visualization. The ACL and PCL were resected and the anterior horn of the lateral meniscus was transected. The knee was then flexed with the patella everted. Large osteophytes from the tibia were removed. Large os teophytes from the femur were removed. dc Using a step drill, and based on preoperative templating, the femoral canal was entered. This was done with a step drill without any difficulty. The intra medullary distal femoral cut guide was inserted, set to a 5 degree valgus cut and 9mm cut thickness. The distal femoral cut guide was then held in position and pinned. With the soft tissues protected, the distal cut was performed. This was passed over a few times to ensure a planar cut. I then turned attention to the tibia. The extramedullary guide was placed onto the leg. The distal aspect was slid medial to adjust for position of center of ankle and stay in line with shaft of the tibia. Approximately 3-5 degrees of posterior slope was kept in the proximal cutting guide. The center of the guide was aligned with the PCL. The stylus was used to assess cut thickness. The medial side, most involved side, was set for a 4mm cut. This was then held in position and pinned into place w ith 2 additional pins and a cross pin for stability. The medial and lateral collateral ligaments were protected and the cut was performed. With this completed, it was assessed and noted to be of appropriate dimensions. The guide was removed. A spacer block was inserted and the knee was brought into extension. The 6mm spacer block provided full extension, without hyperextension and with stability of both the medial and lateral collateral ligaments was assessed. The pins from the femur and the tibia were then removed. The distal femur was then sized. The anterior stylus was placed onto the lateral ridge of the anterior femur. This indicated a size 5 femur. The external rotation of the guide was adjusted to 0 degrees to match the epicondylar axis, perpendicular to Lauren?s line. The 4-in-1 cutting guide was the placed. The posterior medial femur cut was evaluated and appeared of good thickness. The spacer block was inserted underneath the cutting guide and stability was confirmed in 90 degrees of flexion. An herminia wing was used to confirm appropriate position of the anterior cut to avoid notching. This cutting guide was ensured to be flush on the cut surface and then pinned into place with headed pins. While protecting the soft tissues, quad tendon, and collateral ligaments, the anterior and posterior cuts were performed with a saw. The central two pins were removed and the posterior and anterior chamfers were cut next. The notch-cutting guide was placed. This was pinned to lateralize the femoral component as much as possible while keeping it flush on the cut surface. This was then pinned into position. A reciprocating saw was used to make the notch cut. A rasp smoothed the cut surfaces. The medial and lateral menisci were removed. A trial femoral component was then inserted, impacted down to the cut surfaces, and the lug holes were drilled. A provisional trial tibial component was placed and the knee was brought through range of motion. There was noted to be excellent extension and flexion. There was no significant instability. The polyethylene was trialed until there was good flexion and extension with excellent stability to the medial and lateral collaterals. The patella was tracking without thumbs. A size 7mm polyethylene component provided the best range of motion and stability with less than 2mm gapping with medial and lateral stress and full extension without significant hyperextension. The tibial cut surface was fully exposed. The tibia was then sized as a 5. The tibia had been previously marked during trialing to correspond to the center of the tibial component to help with rotation. The trial was aligned to this alexa, approximately rotated to the medial 1/3rd of the tibial tubercle. The trial was pinned into place. The tibia was prepared with a reamer and a keel punch and lug holes. The knee was then brought into extension and the patella was measured as 22mm. Using the patellar clamp and cut guide, this was resected to a flat surface with at least 13mm of thickness remaining. The size 35 patella fit the best. This was oriented and then clamped into position. The lugs were drilled. The trial components were removed. The final components were opened on the back table. The periosteal and capsular tissues, especially posteriorly, around the knee were then systematically injected with a periarticular cocktail consisting of 246mg of Ropivacaine, 0.5mg of Epinephrine, 0.08mg of Clonidine, and 30mg of Ketorolac, diluted to 100cc. On the back table, with the implants opened, the cement was mixed. One batch of high viscosity cement was prepared with vacuum assistance. After the cement was ready a small amount was placed on the cut surface of the patella and the patellar button was clamped into position and held. While the cement was hardening, the cementless knee components were placed. Starting with the tibial component, the tibia was subluxed anteriorly and the lug holes of the component were lined up. The tibia was then impacted with an impactor and mallet until the tibial component was in contact with the tibia. The final polyethylene component was inserted. Then, the femoral component was inserted. The lug holes were aligned and the component was impacted into position. The knee was irrigated with Surgiphor Betadine solution. This was allowed to sit in the knee for 3 minutes and then it was irrigated out with saline. After the cement had finally cured, approximately 15min, the clamp was removed from the patella and the knee was taken through range of motion. The patella was tracking with a no-thumbs technique. The capsule was then reapproximated with a No. 1 Vicryl at multiple locations. The capsule was finally closed with a No. 2 Stratafix, barbed suture. The second dosing of 1g TXA was started. Deep tissues were then reapproximated with 0 Vicryl and 2-0 Vicryl. The skin was closed with a running 3-0 Monocryl in a subcuticular fashion. This was reinforced with skin glue. A Mepilex silver dressing was applied along with a [id number] JON wrap. A CryoCuff was applied. Mary was transferred to the hospital bed without difficulty an suffering no apparent complication. Mary has a good prognosis. Physical therapy will start today and without restrictions, weight-bearing as tolerated. Aspirin 81mg BID will be used for D VT prophylaxis. Date of Procedure: 11/12/24
== END 2024-11-12 16:35 | disposition home or self-care (01) ==
PROVIDERS: PCP Nurse Practitioner; Visit Provider Student in an Organized Health Care Education/Training Program
PROC: (CPT 27447; principal; 2024-11-12 10:30)
DX: M17.12 Unilateral primary osteoarthritis, left knee (principal); M89.1 Physeal arrest; M25.562 Pain in left knee
CPT/HCPCS: 27447; 64447; 64450; 97162; 97530; C1776; J0665; J0690; J1100; J1171; J2250; J2371; J2401; J2405; J2704; J3010; J3475

== ENCOUNTER 2024-11-27 15:01 | Outpatient (CLI) | payer OTHER, SELFPAY ==
--- NOTE | 2024-11-27 09:30 | DI.RAD_ITS ---
Exam(s) XR KNEE LT 1V XR STANDING ALIGNMENT EXAM: XR STANDING ALIGNMENT and XR knee LT 1 V CLINICAL HISTORY: 1ST POST OP S/P L TKA. TECHNIQUE: 2D digital imaging was performed. Five images were obtained. COMPARISON: CR XR STANDING ALIGNMENT from 09/11/2024 CR XR STANDING ALIGNMENT from 10/06/2024 CR XR KNEE RT 1V from 10/06/2024 FINDINGS: BONES: The hips are well maintained. The patient now has bilateral total knee arthroplasties. The o rthopedic hardware appears in good position. The ankles are well maintained.There is no significant leg length discrepancy. SOFT TISSUE: Normal. IMPRESSION: Bilateral total knee arthroplasties. DATA REPOSITORY: RADIATION DOSE DELIVERED:
== END 2024-11-27 15:02 | disposition home or self-care (01) ==
LOC: DIORS 15:01
PROVIDERS: PCP Nurse Practitioner; Visit Provider Student in an Organized Health Care Education/Training Program
DX: Z96.652 Presence of left artificial knee joint (principal); Z47.1 Aftercare following joint replacement surgery
CPT/HCPCS: 73560; 77073

== ENCOUNTER 2024-12-19 00:53 | Outpatient (CLI) | payer OTHER, SELFPAY ==
[2024-12-19 12:41] LABS: FREE T4 0.86 ng/dL (0.76-1.46); TSH 0.88 uIU/mL (0.36-3.74)
[2024-12-19 18:17] LABS: T3, Total 193 ng/dL (97-169)
== END 2024-12-19 00:54 | disposition home or self-care (01) ==
PROVIDERS: PCP Nurse Practitioner; Visit Provider Internal Medicine Endocrinology, Diabetes & Metabolism
DX: E03.9 Hypothyroidism, unspecified (principal); E04.9 Nontoxic goiter, unspecified
CPT/HCPCS: 36415; 84439; 84443; 84480

== ENCOUNTER 2025-05-19 00:52 | Outpatient (CLI) | payer OTHER, SELFPAY ==
--- NOTE | 2025-05-19 | DI.MRI_ITS ---
Exam(s) MR ABDOMEN WO/W EXAM: MR ABDOMEN WO/W CLINICAL HISTORY: HEMATOMA T14.8XXA LIVER LESION > 1CM TECHNIQUE: Multiplanar multisequence MRI of the Abdomen was performed. CONTRAST MATERIAL: IV Contrast: 20 mL of Dotarem contrast administered. COMPARISON: CT CT ABDOMEN PELVIS W from 10/10/2024 FINDINGS: Lung bases: Unremarkable. Liver: Normal size. There is a circumscribed, ovoid high T2 signal lesion in subcapsular location in the posterior right lobe of the liver measuring 15 by 9 millimeters. Enhancement characteristics are difficult to evaluate due to small size and subcapsular location. This area is affected by respiratory motion. No additional liver lesions. Pancreas: Unremarkable. Gallbladder and Bile Ducts: Unremarkable. Adrenals: Unremarkable. Kidneys: Simple cyst again noted on right kidney. Spleen: Unremarkable. Aorta: Unremarkable. Soft Tissues: Unremarkable. Bone: Unremarkable. Lymph Nodes: Unremarkable. Stomach and bowel: Unremarkable. Peritoneal cavity: Unremarkable. No evidence of ascites. IMPRESSION: 15 millimeter lesion in the posterior aspect of the liver is consistent with a benign hemangioma. DATA REPOSITORY:
[2025-05-19] MEDS: Gadoterate meglumine 20 ML VIAL IVP (08:19)
[2025-05-19] MEDS: Normal Saline - Diluent 50 ML VIAL IJ (08:20)
== END 2025-05-19 01:12 ==
LOC: DI 00:52
PROVIDERS: PCP Nurse Practitioner; Visit Provider Nurse Practitioner
DX: D18.03 Hemangioma of intra-abdominal structures
CPT/HCPCS: 74183

== ENCOUNTER 2025-05-19 04:45 | Outpatient (CLI) | payer OTHER, SELFPAY ==
--- NOTE | 2025-05-19 11:09 | DI.MAMMO_ITS ---
Exam(s) MAMMO SCREENING EXAM: MAMMO SCREENING CLINICAL HISTORY: Z12.31 Screening TECHNIQUE: Mammograms were interpreted according to the usual protocol including computer analysis with CAD system, tomosynthesis and C-view imaging. COMPARISON: 2015 through 2023 FINDINGS: The breasts are composed of mainly fatty density , Breast Density category A. There has been mild interval increase in size of an area of previously noted nodularity in the upper central right breast, measuring 7 millimeters. Spot compression views and ultrasound are requested for further evaluation. No suspicious masses or suspicious microcalcifications are seen in the left breast. No skin thickening or abnormal axillary lymph nodes are seen in either breast. IMPRESSION: Right breast: BI-RADS Category 0 - Incomplete: Need additional imaging evaluation with spot compression views and ultrasound. Left breast: Yearly screening mammography is recommended. Breast Density- Category A - The breast are almost entirely fatty. Breast density Category C or D implies that the patient has dense breast tissue. Dense breast tissue can make it harder to find cancer on a mammogram. Dense breast tissue is also associated with an increased risk of breast cancer. This information about the result of the mammogram report was provided to the patient to raise their awareness. Use this report when you speak with the patient about their risks for breast cancer, which includes their family history. At that time, you may recommend additional screening tests (Ultrasound or MRI) as these tests may add significant information. A negative radiographic report should not delay biopsy if a dominant or clinically suspicious mass is present. Up to ten percent of cancers are not identified on mammography. A negative report may reinforce clinical impression. Adenosis and dense breasts may obscure an underlying neoplasm. False positive reports average 6 to 10%. Patient will receive a letter notifying them of these results.
== END 2025-05-19 05:05 ==
PROVIDERS: PCP Nurse Practitioner; Visit Provider Obstetrics & Gynecology
DX: Z12.31 Encounter for screening mammogram for malignant neoplasm of breast (principal); R92.313 Mammographic fatty tissue density, bilateral breasts
CPT/HCPCS: 77063; 77067

== ENCOUNTER 2025-06-02 01:14 | Outpatient (CLI) | payer OTHER, SELFPAY ==
--- NOTE | 2025-06-02 | DI.MAMMO_ITS ---
Exam(s) MG MAMMO SCREEN CALL BACK UNI US BREAST RT COMPLETE EXAM: MG MAMMO SCREEN CALL BACK UNI and U/S breast RT complete CLINICAL HISTORY: INTERVAL INCREASE OF SIZE NODULARITY UPPER CENTRAL RT 7MM R92.8 ABNL MAMMO. TECHNIQUE: Craniocaudal and mediolateral oblique Full Field Digital Mammography views of the right breast with Computer Aided Diagnosis followed by Tomosynthesis and complete right breast ultrasound. All 4 quadrants of the right breast were evaluated sonographically in addition to the axilla and retr oareolar region. COMPARISON: Comparison is made with prior examinations. FINDINGS: Mammography/Tomosynthesis: Masses/Architectural Distortion: There is again seen a well-circumscribed nodule at the 12 o'clock position of the right breast. This nodule has been present on prior examinations dating back to 2016. The nodule is well-circumscribed. No associated calcification is seen. Microcalcifictions: No suspicious pleomorphic-type are seen. Skin Thickening/Nipple Retraction: None. Complete right breast US: Echotexture: Normal appearance of the glandular tissue. Shadowing: No suspicious foci. Cyst: None. Solid lesions: None seen. Sonographically normal appearing lymph nodes are seen in the right axilla. Ductal dilation: None. IMPRESSION: 1. No definite evidence of malignancy is noted. 2. A six-month follow-up right mammogram is requested for re-evaluation. 3. The findings were discussed with the patient on the date of the examination. BI-RADS Category 3 - 6 month - Probably Benign Finding: Recommend follow-up imaging in 6 months Breast Density - Category A - The breast are almost entirely fatty. Breast density Category C or D implies that the patient has dense breast tissue. Dense breast tissue can make it harder to find cancer on a mammogram. Dense breast tissue is also associated with an increased risk of breast cancer. This information about the result of the mammogram report was provided to the patient to raise their awareness. Use this report when you speak with the patient about their risks for breast cancer, which includes their family history. At that time, you may recommend additional screening tests (Ultrasound or MRI) as these tests may add significant information. A negative radiographic report should not delay biopsy if a dominant or clinically suspicious mass is present. Up to ten percent of cancers are not identified on mammography. A negative report may reinforce clinical impression. Adenosis and dense breasts may obscure an underlying neoplasm. False positive reports average 6 to 10%. Patient will receive a letter notifying them of these results.
== END 2025-06-02 01:34 ==
LOC: DI 01:14
PROVIDERS: PCP Nurse Practitioner; Visit Provider Obstetrics & Gynecology
DX: Z12.31 Encounter for screening mammogram for malignant neoplasm of breast (principal); R92.8 Other abnormal and inconclusive findings on diagnostic imaging of breast
CPT/HCPCS: 76642; 77063; 77067

== ENCOUNTER 2025-07-16 11:16 | Outpatient (CLI) | payer OTHER, SELFPAY ==
--- NOTE | 2025-07-16 11:30 | RT.EKG_ITS ---
APPROVED REPORT Exam: Resting ECG Reason for Exam: THYROID ABNORMALITY Patient Location: O HR:55 bpm ECG Measurements Heart Rate 55 AXIS HI 129 P 253 QRSd 126 QRS -19 QT 446 T 6 QTc 427 Conclusion Ectopic atrial rhythm...abnormal P axis, normal rate Nonspecific T abnormalities, anterior leads...T <-0.10mV, V2-V4
== END 2025-07-16 11:17 | disposition home or self-care (01) ==
LOC: CARDOPNVT 11:16
PROVIDERS: PCP Nurse Practitioner; Visit Provider Family Medicine
DX: E03.9 Hypothyroidism, unspecified (principal); R94.31 Abnormal electrocardiogram [ECG] [EKG]; Z01.818 Encounter for other preprocedural examination
CPT/HCPCS: 93005; 93010

== ENCOUNTER 2025-07-20 03:49 | Outpatient (CLI) | payer OTHER, SELFPAY ==
[2025-07-20 07:27] LABS: Abs Immature Grans 0.01 10^3/uL (0.0-0.06); HCT 39.6 % (36.0-46.0); HGB 12.7 g/dL (11.2-15.7); Immature Grans % 0.2 %; MCH 26.4 pg (27.0-33.0); MCHC 32.1 % (32.0-36.0); MCV 82 fL (80-95); MPV 8.6 fL (8.0-11.0); Platelet Count 277 10^3/uL (130-400); RBC 4.81 10^6/uL (3.93-5.22); RDW 15.9 % (11.7-14.6); RDW-SD 47.4 fL; WBC 6.45 10^3/uL (4.4-10.8)
[2025-07-20 08:19] LABS: Anion Gap 3.1 mmol/L (3-11); BUN 20 mg/dL (9-23); CO2 28.9 mmol/L (20.0-31.0); Calcium 8.6 mg/dL (8.3-10.6); Chloride 107 mmol/L (98-107); Glucose 86 mg/dL (74-106); Potassium 3.9 mmol/L (3.5-5.1); Sodium 139 mmol/L (136-145)
[2025-07-20 08:23] LABS: TSH 3.69 uIU/mL (0.55-4.78)
== END 2025-07-20 03:50 | disposition home or self-care (01) ==
LOC: LBO 03:49
PROVIDERS: PCP Nurse Practitioner; Visit Provider Nurse Practitioner
DX: Z01.818 Encounter for other preprocedural examination (principal); Z79.899 Other long term (current) drug therapy
CPT/HCPCS: 36415; 80048; 84443; 85025